=== PATIENT | female | born 1965 | race Caucasian/White ===

== ENCOUNTER 2016-04-17 13:15 | Emergency (ER) | payer MEDICAID ==
[2016-04-17 13:21] VITALS: RESP 16; O2SAT 96
--- NOTE | 2016-04-17 13:54 | EDPHY ---
H & P Time Seen by Provider: 04/17/16 13:35 HPI/ROS: CHIEF COMPLAINT: I am sick HISTORY OF PRESENT ILLNESS: Patient is a 42-year-old female who presents to the emergency department with a cold since . She states that she has developed significant fatigue. She has an ongoing cough that is nonproductive. She has intermittent mild headaches and nausea. No vomiting. No diarrhea. No abdominal pain. The patient has no dysuria or frequency. Patient was concerned because for the past 3 days she has been sleeping extensively. REVIEW OF SYSTEMS: My complete review of systems is negative except as mentioned in the HPI. Past Medical/Surgical History: Includes depression, bipolar to, ADD, fibromyalgia Past surgical history: Includes bilateral foot surgery, pelvic reconstruction, breast implants, abdominal plasty Smoking Status: Never smoked Physical Exam: Vitals noted. 36.4, 113/68, 71, 16, 96% on room air GENERAL: Well-appearing, in no acute distress, alert. HEENT: Eyes normal to inspection, normal pharynx, no signs of dehydration. Normal. NECK: No thyromegaly, no lymphadenopathy, supple. RESPIRATORY: Clear to auscultation bilaterally, no rales, rhonchi or wheezing. Normal. CVS: Regular rate and rhythm, no rubs, murmurs, or gallops. ABDOMEN: Soft, nontender, nondistended, no organomegaly. Benign. BACK: Normal to inspection, no CVA tenderness. SKIN: Normal color, no rash, warm, dry. No pallor. EXTREMITIES: No pedal edema, no calf tenderness, no Homans sign or cords, no joint swelling. NEURO/PSYCH: Alert and oriented, normal mood and affect. Constitutional: Initial Vital Signs Temperature (C) 36.4 C 04/17/16 13:18 Heart Rate 71 04/17/16 13:18 Respiratory Rate 16 04/17/16 13:18 Blood Pressure 113/68 04/17/16 13:18 O2 Sat (%) 96 04/17/16 13:18 O2 Delivery Mode Room Air Allergies/Adverse Reactions: adhesive Allergy (Verified 07/25/14 22:05) DOGS/HORSES Allergy (Mild, Uncoded 07/25/14 22:05) SNEEZE/WATER EYES/ITCHY Home Medications: Medication Instructions Recorded ALPRAZolam [Xanax 0.25 MG (*)] 0.25 mg PO DAILY PRN #0 tab 12/20/14 ARIPiprazole [Abilify 5 mg (*)] 5 mg PO HS #0 tab 12/20/14 Escitalopram Oxalate [Lexapro 10 10 mg PO DAILY #0 tab 12/20/14 MG] Methylphenidate HCl [Ritalin 5mg 5 mg PO TID #45 tab 12/20/14 (*)] OXcarbazepine [Trileptal 300mg (*)] 900 mg PO HS #0 tab 12/20/14 Trifluoperazine HCl [Stelazine 2MG 2 mg PO HS #14 tab 12/20/14 (*)] Hydrocodone/Acetaminophen 1 each PO Q4-6PRN PRN #10 tablet 03/29/15 [Hydrocodon-Acetaminophen 5-325] Ondansetron Odt [Zofran Odt 4 mg 4 mg PO Q4 PRN #20 tab 03/29/15 (RX)] Ranitidine HCl [Zantac] 150 mg PO DAILY #30 tablet 03/29/15 Medical Decision Making ED Course/Re-evaluation: In the emergency department I discussed possible etiologies with the patient. I answered all her questions. A flu swab and chest x-ray were performed. Influenza: Negative Chest x-ray: No acute disease noted. Please refer the dictated report I discussed the results with the patient answered all her questions. She is given warnings prior to leaving. At this time I do not feel she needs antibiotics. I explained this to the patient. She will return with worsening symptoms. Differential Diagnosis: Differential includes but is not limited to viral syndrome, bronchitis, pneumonia, influenza, bacteremia, sepsis, medication interaction - Data Points Laboratory Results: 04/17/16 13:20 Influenza Typ A,B (DFA) Cancelled Influenza A & B (PCR) NEGATIVE FOR FLU (NEGATIVE) Departure - Departure Disposition: Home, Routine, Self-Care Clinical Impression: Viral syndrome, Fever Condition: Good Instructions: Fever in Adults (ED) Additional Instructions: Return with increasing fever, vomiting, shortness of breath or any other concerns. Referrals: Wendi Teixeira MD [Primary Care Provider] - 1-2 days without fail
--- NOTE | 2016-04-17 14:28 | DX ---
Chest, PA and Lateral Upright Views April 17, 2016 at 1:27 p.m. Clinical History: 50-year-old female with fever for three days and flulike symptoms. Comparison Study: Chest, dated July 15, 2006. Findings: There is a mild biphasic thoracolumbar scoliosis with some degenerative features. A lead sh ield was applied to the lower abdomen and pelvis. There are bilateral augmentation mammoplasties pres ent. The cardiac and mediastinal silhouettes are normal in size. There is mild central perihilar bron chial wall thickening, but no focal infiltrate, atelectasis, pleural effusion, peripheral interstitia l edema, or pneumothorax. Impression: Mild perihilar bronchitis, without a focal infiltrate.
[2016-04-17 15:20] VITALS: BP 139/91; PULSE 79; TEMP 98.6
== END 2016-04-17 15:27 | disposition home or self-care (01) ==
DX: B34.9 Viral infection, unspecified (principal)

== ENCOUNTER 2016-06-24 16:27 | Emergency (ER) | payer MEDICAID ==
[2016-06-24 16:43] VITALS: PULSE 77; RESP 20; TEMP 98.1
--- NOTE | 2016-06-24 16:49 | EDPHY ---
H & P Time Seen by Provider: 06/24/16 16:28 HPI/ROS: CHIEF COMPLAINT: Lethargy HISTORY OF PRESENT ILLNESS: Patient is a 42-year-old female with a history of depression, bipolar disorder and fibromyalgia who presents emergency department with multiple complaints. She states that for the past 3-4 days she has had difficulty "same my name." Patient also states "I don't have pigeon toes, but I keep stumbling over my pigeon toes." Patient also states that she has been extremely fatigued and sleepy. She denies change in her medication. No drug or alcohol use. No recent head trauma. She denies headache, neck pain, shortness of breath, cough, abdominal pain, nausea, vomiting or diarrhea. She has had no dysuria or frequency. REVIEW OF SYSTEMS: My complete review of systems is negative except as mentioned in the HPI. Past Medical/Surgical History: Includes depression, bipolar disorder, attention deficit hyperactivity disorder , fibromyalgia, Past surgical history: Includes bilateral foot surgery, pelvic reconstruction, breast implants, abdominal plasty Social history: The patient does not smoke Smoking Status: Never smoked Physical Exam: Vitals noted GENERAL: Well-appearing, in no acute distress, alert. HEENT: Eyes normal to inspection, normal pharynx, no signs of dehydration. NECK: No thyromegaly, no lymphadenopathy, supple. RESPIRATORY: Clear to auscultation bilaterally, no rales, rhonchi or wheezing. CVS: Regular rate and rhythm, no rubs, murmurs, or gallops. ABDOMEN: Soft, nontender, nondistended, no organomegaly. BACK: Normal to inspection, no CVA tenderness. SKIN: Normal color, no rash, warm, dry. No pallor. EXTREMITIES: No pedal edema, no calf tenderness, no Homans sign or cords, no joint swelling. NEURO/PSYCH: Higher functions: Alert and Oriented x3. Normal speech and cognition. Normal mood and affect. Cranial nerves: Normal as tested. Cerebellar: Normal as tested. Good finger to nose, good [id number], normal gait. Peripheral exam: Normal motor exam. Normal sensation. Normal reflexes. Constitutional: Initial Vital Signs Temperature (C) 36.7 C 06/24/16 16:40 Heart Rate 77 06/24/16 16:40 Respiratory Rate 20 06/24/16 16:40 Blood Pressure 110/73 06/24/16 16:40 O2 Sat (%) 97 06/24/16 16:40 O2 Delivery Mode Room Air Allergies/Adverse Reactions: adhesive Allergy (Verified 07/25/14 22:05) DOGS/HORSES Allergy (Mild, Uncoded 07/25/14 22:05) SNEEZE/WATER EYES/ITCHY Home Medications: Medication Instructions Recorded ALPRAZolam [Xanax 0.25 MG (*)] 0.25 mg PO DAILY PRN #0 tab 12/20/14 ARIPiprazole [Abilify 5 mg (*)] 5 mg PO HS #0 tab 12/20/14 Escitalopram Oxalate [Lexapro 10 10 mg PO DAILY #0 tab 12/20/14 MG] Methylphenidate HCl [Ritalin 5mg 5 mg PO TID #45 tab 12/20/14 (*)] OXcarbazepine [Trileptal 300mg (*)] 900 mg PO HS #0 tab 12/20/14 Trifluoperazine HCl [Stelazine 2MG 2 mg PO HS #14 tab 12/20/14 (*)] Hydrocodone/Acetaminophen 1 each PO Q4-6PRN PRN #10 tablet 03/29/15 [Hydrocodon-Acetaminophen 5-325] Ondansetron Odt [Zofran Odt 4 mg 4 mg PO Q4 PRN #20 tab 03/29/15 (RX)] Ranitidine HCl [Zantac] 150 mg PO DAILY #30 tablet 03/29/15 Medical Decision Making ED Course/Re-evaluation: In the emergency department I discussed possible etiologies with the patient. She consented to further workup. Laboratory studies, head CT were ordered. Head CT: No acute disease noted. Please refer the dictated report by Dr. Sid Castrejon. CBC and chemistry were unremarkable. I rechecked the patient. She was doing better on recheck. No focal deficits. No respiratory distress. Lung sounds clear. Abdomen is soft, nontender nondistended. She was given warnings prior to leaving. She will return with worsening symptoms. Differential Diagnosis: My differential includes but is not limited to subarachnoid hemorrhage, subdural hematoma, meningitis, encephalitis, electrolyte abnormality, sugar abnormality, urinary tract infection, occult infection, bacteremia, sepsis, alcohol use, medication reaction, NPH - Data Points Laboratory Results: Laboratory Results 06/24/16 16:35 06/24/16 16:35 06/24/16 06/24/16 06/24/16 17:15 16:35 16:35 WBC RBC Hgb Hct MCV MCH MCHC RDW Plt Count MPV Neut % (Auto) Lymph % (Auto) [place] % (Auto) Eos % (Auto) Baso % (Auto) Nucleat RBC Rel Count Absolute Neuts (auto) Absolute Lymphs (auto) Absolute Monos (auto) Absolute Eos (auto) Absolute Basos (auto) Absolute Nucleated RBC Immature Gran % Immature Gran # Sodium 143 mEq/L mEq/L (134-144) Potassium 3.6 mEq/L mEq/L (3.5-5.2) Chloride 109 mEq/L mEq/L (97-110) Carbon Dioxide 24 mEq/l mEq/l (22-31) Anion Gap 10 mEq/L mEq/L (8-16) BUN 24 mg/dL H mg/dL (7-23) Creatinine 0.8 mg/dL mg/dL (0.6-1.0) Estimated GFR > 60 Glucose 85 mg/dL mg/dL (70-100) Calcium 9.0 mg/dL mg/dL (8.5-10.4) Beta HCG, Qual NEGATIVE Urine Color YELLOW Urine Appearance CLEAR Urine pH 5.0 (5.0-7.5) Ur Specific [place] 1.025 (1.002-1.030) Urine Protein NEGATIVE (NEGATIVE) Urine Ketones NEGATIVE (NEGATIVE) Urine Blood NEGATIVE (NEGATIVE) Urine Nitrate NEGATIVE (NEGATIVE) Urine Bilirubin NEGATIVE (NEGATIVE) Urine Urobilinogen NEGATIVE EU EU (0.2-1.0) Ur Leukocyte Esterase NEGATIVE (NEGATIVE) Ur Culture Indicated? NOT INDICATED (NI) Urine Glucose NEGATIVE (NEGATIVE) Ethyl Alcohol < 10 mg/dL mg/dL (0-10) 06/24/16 16:35 WBC 6.64 10^3/uL 10^3/uL (3.80-9.50) RBC 4.34 10^6/uL 10^6/uL (4.18-5.33) Hgb 13.0 g/dL g/dL (12.6-16.3) Hct 40.5 % % (38.0-47.0) MCV 93.3 fL fL (81.5-99.8) MCH 30.0 pg pg (27.9-34.1) MCHC 32.1 g/dL L g/dL (32.4-36.7) RDW 13.2 % % (11.5-15.2) Plt Count 239 10^3/uL 10^3/uL (150-400) MPV 10.2 fL fL (8.7-11.7) Neut % (Auto) 67.2 % % (39.3-74.2) Lymph % (Auto) 25.2 % % (15.0-45.0) [place] % (Auto) 5.0 % % (4.5-13.0) Eos % (Auto) 1.7 % % (0.6-7.6) Baso % (Auto) 0.6 % % (0.3-1.7) Nucleat RBC Rel Count 0.0 % % (0.0-0.2) Absolute Neuts (auto) 4.47 10^3/uL 10^3/uL (1.70-6.50) Absolute Lymphs (auto) 1.67 10^3/uL 10^3/uL (1.00-3.00) Absolute Monos (auto) 0.33 10^3/uL 10^3/uL (0.30-0.80) Absolute Eos (auto) 0.11 10^3/uL 10^3/uL (0.03-0.40) Absolute Basos (auto) 0.04 10^3/uL 10^3/uL (0.02-0.10) Absolute Nucleated RBC 0.00 10^3/uL 10^3/uL (0-0.01) Immature Gran % 0.3 % % (0.0-1.1) Immature Gran # 0.02 10^3/uL 10^3/uL (0.00-0.10) Sodium Potassium Chloride Carbon Dioxide Anion Gap BUN Creatinine Estimated GFR Glucose Calcium Beta HCG, Qual Urine Color Urine Appearance Urine pH Ur Specific [place] Urine Protein Urine Ketones Urine Blood Urine Nitrate Urine Bilirubin Urine Urobilinogen Ur Leukocyte Esterase Ur Culture Indicated? Urine Glucose Ethyl Alcohol Departure - Departure Disposition: Home, Routine, Self-Care Clinical Impression: Fatigue Qualifiers: Fatigue type: unspecified Qualified Code(s): R53.83 - Other fatigue Condition: Good Instructions: Fatigue (ED) Additional Instructions: Your laboratory studies and head CT were normal. Return with increasing symptoms or other concerns.
[2016-06-24 17:02] LABS: % IMMATURE GRANULYOCYTES 0.3 % (0.0-1.1); ABSOLUTE IMMATURE GRANULOCYTES 0.02 10^3/uL (0.00-0.10); ADD DIFF? NO; ADD MORPH? NO; ADD SCAN? NO; ATYPICAL LYMPHOCYTE FLAG 0 (0-99); FRAGMENT RBC FLAG 0 (0-99); HEMATOCRIT 40.5 % (38.0-47.0); LEFT SHIFT FLG 0 (0-99); LIPEMIA HEMOLYSIS FLAG 80 (0-99); MEAN CELL HEMOGLOBIN CONCENTR. 32.1 g/dL (32.4-36.7); MEAN CELL VOLUME 93.3 fL (81.5-99.8); MEAN PLATELET VOLUME 10.2 fL (8.7-11.7); PLATELET CLUMPS FLAG 0 (0-99); PLATELET COUNT 239 10^3/uL (150-400); RED BLOOD CELL COUNT 4.34 10^6/uL (4.18-5.33); RED CELL DISTRIBUTION WIDTH 13.2 % (11.5-15.2)
[2016-06-24 17:20] LABS: ANION GAP 10 mEq/L (8-16); CARBON DIOXIDE 24 mEq/l (22-31); CHLORIDE 109 mEq/L (97-110); CREATININE 0.8 mg/dL (0.6-1.0); ETHANOL SERUM < 10 mg/dL (0-10); GLOMERULAR FILTRATION RATE > 60; GLUCOSE 85 mg/dL (70-100); POTASSIUM 3.6 mEq/L (3.5-5.2); SODIUM 143 mEq/L (134-144)
[2016-06-24 17:41] LABS: COLOR YELLOW; LEUKOCYTE ESTERASE,URINE NEGATIVE (NEGATIVE); NITRITE,URINE NEGATIVE (NEGATIVE)
[2016-06-24] MEDS ORDERED: LETS SOLN TOPICAL 1 EA SYR TP ONE (17:41)
[2016-06-24 18:59] VITALS: BP 102/74; O2SAT 96
== END 2016-06-24 19:00 | disposition home or self-care (01) ==
LOC: EDUNIT#
DX: R53.83 Other fatigue (principal)
CPT/HCPCS: G0480

== ENCOUNTER 2016-06-25 15:52 | Observation (INO) | payer MEDICAID ==
--- NOTE | 2016-06-25 16:20 | CPEKG ---
Heart Rate: 98 RR Interval: 612 P-R Interval: 136 QRSD Interval: 84 QT Interval: 372 QTC Interval: 476 P Dupo: 62 QRS Dupo: 67 T Wave Dupo: 10 EKG Severity - BORDERLINE ECG - EKG Impression: SINUS RHYTHM EKG Impression: BORDERLINE T ABNORMALITIES, ANTERIOR LEADS Electronically Signed By: Charles Min 25-Jun-2016 23:24:34
--- NOTE | 2016-06-25 16:27 | EDPHY ---
H & P Time Seen by Provider: 06/25/16 16:21 HPI/ROS: Chief complaint. Confused, stumbling, can't swallow HPI. 42-year-old female seen yesterday in the emergency department for similar symptoms with normal workup. Her mother called her today and said her symptoms are continuing. She was advised to return to the emergency department. Patient tells me that 4 days ago her thighs fell week. Since then she has been off balance and stumbling. She went for a walk today and returned to the wrong house. She has had no fever, head injury URI symptoms. She at times feels like she can' t swallow and has spit out water. She has only felt like eating ice cream for the last for 5 days. 3 nights ago the patient initially tells me that she she took 10 Klonopin to help her sleep and then when I asked her further about that she denies that she took extra Klonopin. Patient manages her own medication. She had a normal workup including normal head CT yesterday ROS Constitutional. Generalized weakness and off balance Eyes. no problems with vision ENT. no sore throat, no nasal drainage Cardiovascular. no chest pain Respiratory. no shortness of breath, no cough Abdominal. no abdominal pain, no nausea/vomiting, no diarrhea . no problems urinating MS. no calf pain/swelling, no neck/back pain, no joint pain Skin. no rash Lymph. no swollen glands Neuro. Ataxia, altered mental status and confusion Past Medical/Surgical History: Past medical history, depression, bipolar illness, ADD, pelvic reconstruction, breast implants, fibromyalgia Social History: Single, nonsmoker, denies alcohol Smoking Status: Never smoked Physical Exam: General Appearance: Alert well-developed female slurred speech mild distress vital signs are stable Eyes: Pupils equal and round no pallor or injection. ENT, oropharynx without trauma or injection. Mucous membranes are moist Respiratory: There are no retractions, lungs are clear to auscultation. Cardiovascular: Regular rate and rhythm. Gastrointestinal: Abdomen is soft and nontender, no masses, bowel sounds normal. Neurological: Awake and alert, sensory and motor exams grossly normal. Speech is slurred. Cranial nerves intact. Ataxia with finger to nose with both hands and [id number] is abnormal with both legs. There is no pronator drift however. Skin: Warm and dry, no rashes. Musculoskeletal: Neck is supple nontender. Extremities symmetrical, full range of motion. Psychiatric: Patient is oriented X 3, there is no agitation. Constitutional: Initial Vital Signs Temperature (C) 36.9 C 06/25/16 16:04 Heart Rate 99 06/25/16 16:04 Respiratory Rate 14 06/25/16 16:04 Blood Pressure 122/83 H 06/25/16 16:04 O2 Sat (%) 96 06/25/16 16:04 O2 Delivery Mode Room Air Allergies/Adverse Reactions: adhesive Allergy (Verified 06/25/16 16:03) DOGS/HORSES Allergy (Mild, Uncoded 06/25/16 16:03) SNEEZE/WATER EYES/ITCHY Home Medications: Medication Instructions Recorded ALPRAZolam [Xanax 0.25 MG (*)] 0.25 mg PO DAILY PRN #0 tab 12/20/14 ARIPiprazole [Abilify 5 mg (*)] 5 mg PO HS #0 tab 12/20/14 Escitalopram Oxalate [Lexapro 10 10 mg PO DAILY #0 tab 12/20/14 MG] Methylphenidate HCl [Ritalin 5mg 5 mg PO TID #45 tab 12/20/14 (*)] OXcarbazepine [Trileptal 300mg (*)] 900 mg PO HS #0 tab 12/20/14 Trifluoperazine HCl [Stelazine 2MG 2 mg PO HS #14 tab 12/20/14 (*)] Hydrocodone/Acetaminophen 1 each PO Q4-6PRN PRN #10 tablet 03/29/15 [Hydrocodon-Acetaminophen 5-325] Ondansetron Odt [Zofran Odt 4 mg 4 mg PO Q4 PRN #20 tab 03/29/15 (RX)] Ranitidine HCl [Zantac] 150 mg PO DAILY #30 tablet 03/29/15 Medical Decision Making - Diagnostics EKG Interpretation: EKG interpreted by me shows normal sinus rhythm with normal interval and axis. QRS is normal there is no significant ST elevation or depression. There is no arrhythmia. The rate is 98 Procedures: IV normal saline, monitor Procedure: Lumbar puncture. Indication: Confusion, ataxia After verbal informed consent from patient explaining the risks including infection, bleeding, and neurologic damage, a lumbar puncture was performed after the patient was prepped and draped in the usual fashion. The back was anesthetized with 1% lidocaine. Approximately 4 cc of clear fluid was obtained. Opening pressure was not obtained. There were no complications. The procedure was performed by myself. The spinal fluid was clear ED Course/Re-evaluation: On serial evaluations patient still has some slurred speech and ataxia. Review of her head CT yesterday was normal. Her lab work is normal. Her tox screen is negative. Lumbar puncture is performed as part of altered mental status workup CSF appears normal so far I have discussed treatment plan including need for admission with the patient and her mom. They expressed understanding and agreement I consulted and discussed the case with Dr. Garcia, hospitalist, who sees the patient in the emergency department Differential Diagnosis: I suspect that this is medication ingestion or withdrawal. I have considered intracranial bleeding however she had a normal head CT last night. I have considered meningitis or intracranial infection is etiology as well. - Data Points Laboratory Results: Laboratory Results 06/25/16 16:05 06/25/16 16:05 06/25/16 06/25/16 06/25/16 17:55 16:05 16:05 WBC RBC Hgb Hct MCV MCH MCHC RDW Plt Count MPV Neut % (Auto) Lymph % (Auto) [place] % (Auto) Eos % (Auto) Baso % (Auto) Nucleat RBC Rel Count Absolute Neuts (auto) Absolute Lymphs (auto) Absolute Monos (auto) Absolute Eos (auto) Absolute Basos (auto) Absolute Nucleated RBC Immature Gran % Immature Gran # Sodium Potassium Chloride Carbon Dioxide Anion Gap BUN Creatinine Estimated GFR Glucose Calcium Beta HCG, Qual NEGATIVE CSF Tube Number Pending CSF Appearance Pending CSF Color Pending CSF Supernatant Pending CSF WBC Pending CSF RBC Pending CSF Glucose 55 mg/dL mg/dL (50-75) CSF Total Protein 47 mg/dL mg/dL (12-60) Salicylates Urine Opiates Screen NEGATIVE (NEGATIVE) Acetaminophen Urine Barbiturates NEGATIVE (NEGATIVE) Ur Phencyclidine Scrn NEGATIVE (NEGATIVE) Ur Amphetamine Screen NEGATIVE (NEGATIVE) U Benzodiazepines Scrn NEGATIVE (NEGATIVE) Urine Cocaine Screen NEGATIVE (NEGATIVE) U Marijuana (THC) Screen NEGATIVE (NEGATIVE) Ethyl Alcohol 06/25/16 06/25/16 16:05 16:05 WBC 5.80 10^3/uL 10^3/uL (3.80-9.50) RBC 4.29 10^6/uL 10^6/uL (4.18-5.33) Hgb 12.9 g/dL g/dL (12.6-16.3) Hct 38.9 % % (38.0-47.0) MCV 90.7 fL fL (81.5-99.8) MCH 30.1 pg pg (27.9-34.1) MCHC 33.2 g/dL g/dL (32.4-36.7) RDW 13.3 % % (11.5-15.2) Plt Count 242 10^3/uL 10^3/uL (150-400) MPV 10.0 fL fL (8.7-11.7) Neut % (Auto) 68.0 % % (39.3-74.2) Lymph % (Auto) 23.4 % % (15.0-45.0) [place] % (Auto) 6.2 % % (4.5-13.0) Eos % (Auto) 1.4 % % (0.6-7.6) Baso % (Auto) 0.7 % % (0.3-1.7) Nucleat RBC Rel Count 0.0 % % (0.0-0.2) Absolute Neuts (auto) 3.94 10^3/uL 10^3/uL (1.70-6.50) Absolute Lymphs (auto) 1.36 10^3/uL 10^3/uL (1.00-3.00) Absolute Monos (auto) 0.36 10^3/uL 10^3/uL (0.30-0.80) Absolute Eos (auto) 0.08 10^3/uL 10^3/uL (0.03-0.40) Absolute Basos (auto) 0.04 10^3/uL 10^3/uL (0.02-0.10) Absolute Nucleated RBC 0.00 10^3/uL 10^3/uL (0-0.01) Immature Gran % 0.3 % % (0.0-1.1) Immature Gran # 0.02 10^3/uL 10^3/uL (0.00-0.10) Sodium 141 mEq/L mEq/L (134-144) Potassium 4.1 mEq/L mEq/L (3.5-5.2) Chloride 111 mEq/L H mEq/L (97-110) Carbon Dioxide 18 mEq/l L D mEq/l (22-31) Anion Gap 12 mEq/L mEq/L (8-16) BUN 14 mg/dL mg/dL (7-23) Creatinine 0.7 mg/dL mg/dL (0.6-1.0) Estimated GFR > 60 Glucose 120 mg/dL H mg/dL (70-100) Calcium 9.0 mg/dL mg/dL (8.5-10.4) Beta HCG, Qual CSF Tube Number CSF Appearance CSF Color CSF Supernatant CSF WBC CSF RBC CSF Glucose CSF Total Protein Salicylates < 1.0 mg/dL L mg/dL (2.0-20.0) Urine Opiates Screen Acetaminophen < 10 mcg/mL L mcg/mL (10.0-30.0) Urine Barbiturates Ur Phencyclidine Scrn Ur Amphetamine Screen U Benzodiazepines Scrn Urine Cocaine Screen U Marijuana (THC) Screen Ethyl Alcohol < 10 mg/dL mg/dL (0-10) Microbiology Results: MICROBIOLOGY 06/25/16 17:55 Cerebral Spinal Fluid Gram Stain - Final Departure - Departure Disposition: [facility] Inpatient Acute Clinical Impression: Altered mental status Qualifiers: Altered mental status type: disorientation Qualified Code(s): R41.0 - Disorientation, unspecified Condition: Fair
[2016-06-25 16:50] LABS: % IMMATURE GRANULYOCYTES 0.3 % (0.0-1.1); ABSOLUTE IMMATURE GRANULOCYTES 0.02 10^3/uL (0.00-0.10); ADD DIFF? NO; ADD MORPH? NO; ADD SCAN? NO; ATYPICAL LYMPHOCYTE FLAG 10 (0-99); FRAGMENT RBC FLAG 0 (0-99); HEMATOCRIT 38.9 % (38.0-47.0); HEMOGLOBIN 12.9 g/dL (12.6-16.3); LEFT SHIFT FLG 0 (0-99); LIPEMIA HEMOLYSIS FLAG 80 (0-99); MEAN CELL HEMOGLOBIN 30.1 pg (27.9-34.1); MEAN CELL HEMOGLOBIN CONCENTR. 33.2 g/dL (32.4-36.7); MEAN CELL VOLUME 90.7 fL (81.5-99.8); PLATELET CLUMPS FLAG 0 (0-99); PLATELET COUNT 242 10^3/uL (150-400); RED BLOOD CELL COUNT 4.29 10^6/uL (4.18-5.33); RED CELL DISTRIBUTION WIDTH 13.3 % (11.5-15.2)
[2016-06-25 16:56] LABS: ANION GAP 12 mEq/L (8-16); CARBON DIOXIDE 18 mEq/l (22-31); CHLORIDE 111 mEq/L (97-110); CREATININE 0.7 mg/dL (0.6-1.0); ETHANOL SERUM < 10 mg/dL (0-10); GLOMERULAR FILTRATION RATE > 60; GLUCOSE 120 mg/dL (70-100); POTASSIUM 4.1 mEq/L (3.5-5.2); SALICYLATE < 1.0 mg/dL (2.0-20.0); SODIUM 141 mEq/L (134-144)
[2016-06-25 18:22] LABS: PROTEIN, CSF 47 mg/dL (12-60)
[2016-06-25 19:14] LABS: WBC, CSF 0 /mm3 (0-5)
[2016-06-25 19:33] LABS: WBC, CSF 0 /mm3 (0-5)
[2016-06-25 19:34] LABS: CSF APPEARANCE CLEAR (CLEAR); CSF COLOR COLORLESS (COLORLESS); CSF SUPERNATANT COLORLESS (COLORLESS)
[2016-06-25 19:35] LABS: CSF APPEARANCE CLEAR (CLEAR); CSF COLOR COLORLESS (COLORLESS); CSF SUPERNATANT COLORLESS (COLORLESS)
--- NOTE | 2016-06-25 20:11 | PDGENHP ---
History and Physical - Chief Complaint trouble swallowing - History of Present Illness this is a 50-year-old female with history of bipolar and depression presents to the emergency department today with worsening slurred speech, trouble walking , and a inability to swallow water. She states that she 1st developed some weakness in both of her thighs about 4 days ago. Since the onset she has had worsening weakness in her legs to the point where she is having trouble walking. she also reports slurred speech. She denies word-finding difficulties. Her symptoms seem to improve after she sleeps. She denies any blurred vision. She has not been having any fevers or chills. She denies headache Or neck pain. She was seen in the emergency department yesterday for the same complaints, and was sent home. She returned today due to worsening of her symptoms. her mood is described as depressed, but is stable. She denies any substance use other than [id number] BOOM supplement that she takes for sleep. Per home medication reconciliation she is on benzodiazepine medications that she tells me she has not been taking. Her urine tox screen is negative for benzos. History Information - Allergies/Home Medication List Allergies/Adverse Reactions: adhesive Allergy (Verified 06/25/16 16:03) DOGS/HORSES Allergy (Mild, Uncoded 06/25/16 16:03) SNEEZE/WATER EYES/ITCHY Home Medications: ALPRAZolam [Xanax 0.25 MG (*)] 0.25 mg PO DAILY PRN 06/25/16 [Last Taken Unknown ] Calcium Carbonate [[place] Calcium 500 mg (*)] 500 mg PO BID 06/25/16 [ Last Taken 06/24/16] Herbals/Supplements -Info Only 1 ea PO DAILY 06/25/16 [Last Taken Unknown] METHYLPHENIDATE HCL [Concerta 36 mg] 36 mg PO DAILY 06/25/16 [Last Taken ] Methylphenidate HCl [Ritalin 20mg (*)] 20 mg PO 5XD 06/25/16 [Last Taken ] Montelukast Sodium [Singulair 10 mg (*)] 10 mg PO DAILY 06/25/16 [Last Taken ] Pregabalin [Lyrica 75mg (*)] 75 mg PO BID 06/25/16 [Last Taken 06/24/16] Zinc Gluconate [Zinc Chelated 50mg (*)] 50 mg PO DAILY 06/25/16 [Last Taken ] Zonisamide [Zonegran 100MG (*)] 100 mg PO HS 06/25/16 [Last Taken 06/24/16] clonazePAM [klonoPIN (*)] 1 mg PO BID 06/25/16 [Last Taken 06/24/16] I have personally reviewed and updated: family history, medical history, social history, surgical history Past Medical History: Bipolar 1, depression, ADD, fibromyalgia syndrome - Surgical History Additional surgical history: breast augmentation, pelvic reconstruction - Family History Additional family history: maternal grandfather had Parkinson's disease, paternal grandmother had schizophrenia - Social History Smoking Status: Never smoked Alcohol Use: None Drug Use: None Review of Systems ROS: 10pt was reviewed & negative except for what was stated in HPI & below Constitutional: Reports: no symptoms EENMT: Reports: no symptoms Cardiac: Reports: no symptoms Respiratory: Reports: no symptoms Gastrointestinal: Reports: no symptoms Genitourinary: Reports: frequency Muscolosketal: Reports: no symptoms Skin: Reports: no symptoms Physical Exam Physical Exam: CT of the head done 06/24/2016 was reviewed and negative Temp Pulse Resp BP Pulse Ox 36.9 C 88 16 118/79 97 06/25/16 16:04 06/25/16 18:48 06/25/16 18:48 06/25/16 18:48 06/25/16 18:48 Constitutional: no apparent distress, appears nourished, not in pain Ears, Nose, Mouth, Throat: moist mucous membranes, hearing normal, ears appear normal, no oral mucosal ulcers Cardiovascular: regular rate and rhythym, no murmur, rub, or gallop, No edema Respiratory: no respiratory distress, no rales or rhonchi, clear to auscultation Gastrointestinal: normoactive bowel sounds, soft, non-tender abdomen, no palpable masses Genitourinary: no bladder fullness, no bladder tenderness Skin: warm, normal color, no rashes or abrasions, no fluctuance, no induration, No mottled Musculoskeletal: full muscle strength, no muscle tenderness, normal joint ROM, no joint effusions Neurologic: AAOx3, CN II-XII Intact, other ( no saddle anesthesia ; DTRs are 2+ and symmetric at the patella ; rapid alternating movement tach; brxaup-zf-psac intact ; speech is fluent but slightly slurred), No weakness, No numbness, No facial droop Psychiatric: interacting appropriately, not anxious, not encephalopathic, thought process linear, depressed, No anxious Lymph, Heme, Immunologic: no cervical LAD, no supraclavicular LAD Lab Data & Imaging Review 06/25/16 16:05 06/25/16 16:05 WBC 5.80 10^3/uL (3.80-9.50) 06/25/16 16:05 RBC 4.29 10^6/uL (4.18-5.33) 06/25/16 16:05 Hgb 12.9 g/dL (12.6-16.3) 06/25/16 16:05 Hct 38.9 % (38.0-47.0) 06/25/16 16:05 MCV 90.7 fL (81.5-99.8) 06/25/16 16:05 MCH 30.1 pg (27.9-34.1) 06/25/16 16:05 MCHC 33.2 g/dL (32.4-36.7) 06/25/16 16:05 RDW 13.3 % (11.5-15.2) 06/25/16 16:05 Plt Count 242 10^3/uL (150-400) 06/25/16 16:05 MPV 10.0 fL (8.7-11.7) 06/25/16 16:05 Neut % (Auto) 68.0 % (39.3-74.2) 06/25/16 16:05 Lymph % (Auto) 23.4 % (15.0-45.0) 06/25/16 16:05 [place] % (Auto) 6.2 % (4.5-13.0) 06/25/16 16:05 Eos % (Auto) 1.4 % (0.6-7.6) 06/25/16 16:05 Baso % (Auto) 0.7 % (0.3-1.7) 06/25/16 16:05 Nucleat RBC Rel Count 0.0 % (0.0-0.2) 06/25/16 16:05 Absolute Neuts (auto) 3.94 10^3/uL (1.70-6.50) 06/25/16 16:05 Absolute Lymphs (auto) 1.36 10^3/uL (1.00-3.00) 06/25/16 16:05 Absolute Monos (auto) 0.36 10^3/uL (0.30-0.80) 06/25/16 16:05 Absolute Eos (auto) 0.08 10^3/uL (0.03-0.40) 06/25/16 16:05 Absolute Basos (auto) 0.04 10^3/uL (0.02-0.10) 06/25/16 16:05 Absolute Nucleated RBC 0.00 10^3/uL (0-0.01) 06/25/16 16:05 Immature Gran % 0.3 % (0.0-1.1) 06/25/16 16:05 Immature Gran # 0.02 10^3/uL (0.00-0.10) 06/25/16 16:05 Sodium 141 mEq/L (134-144) 06/25/16 16:05 Potassium 4.1 mEq/L (3.5-5.2) 06/25/16 16:05 Chloride 111 mEq/L (97-110) H 06/25/16 16:05 Carbon Dioxide 18 mEq/l (22-31) L D 06/25/16 16:05 Anion Gap 12 mEq/L (8-16) 06/25/16 16:05 BUN 14 mg/dL (7-23) 06/25/16 16:05 Creatinine 0.7 mg/dL (0.6-1.0) 06/25/16 16:05 Estimated GFR > 60 06/25/16 16:05 Glucose 120 mg/dL (70-100) H 06/25/16 16:05 Calcium 9.0 mg/dL (8.5-10.4) 06/25/16 16:05 Beta HCG, Qual NEGATIVE 06/25/16 16:05 CSF Tube Number 4 06/25/16 18:00 CSF Appearance CLEAR (CLEAR) 06/25/16 18:00 CSF Color COLORLESS (COLORLESS) 06/25/16 18:00 CSF Supernatant COLORLESS (COLORLESS) 06/25/16 18:00 CSF WBC 0 /mm3 (0-5) 06/25/16 18:00 CSF RBC 0 /mm3 (0-0) 06/25/16 18:00 CSF Glucose 55 mg/dL (50-75) 06/25/16 17:55 CSF Total Protein 47 mg/dL (12-60) 06/25/16 17:55 Salicylates < 1.0 mg/dL (2.0-20.0) L 06/25/16 16:05 Urine Opiates Screen NEGATIVE (NEGATIVE) 06/25/16 16:05 Acetaminophen < 10 mcg/mL (10.0-30.0) L 06/25/16 16:05 Urine Barbiturates NEGATIVE (NEGATIVE) 06/25/16 16:05 Ur Phencyclidine Scrn NEGATIVE (NEGATIVE) 06/25/16 16:05 Ur Amphetamine Screen NEGATIVE (NEGATIVE) 06/25/16 16:05 U Benzodiazepines Scrn NEGATIVE (NEGATIVE) 06/25/16 16:05 Urine Cocaine Screen NEGATIVE (NEGATIVE) 06/25/16 16:05 U Marijuana (THC) Screen NEGATIVE (NEGATIVE) 06/25/16 16:05 Ethyl Alcohol < 10 mg/dL (0-10) 06/25/16 16:05 Visualized and Interpreted EKG results: Yes EKG Interpretation: Positive for: normal sinsus rhythm ( 98 beats per minute). Negative for: ST elevation, ST depression Assessment & Plan Assessment: This is a 50-year-old female presenting with # slurred speech/ataxia/ dysphagia of unclear etiology differential diagnosis is broad and includes psychosomatic versus central brain lesion versus myasthenia gravis versus benzodiazepine side effect versus a side effect from BOOM supplementation - I discussed case with Dr. Vera from Neurology who is recommending MRI of the brain as well as myasthenia gravis antibodies. he will see the patient in consultation tomorrow # history of bipolar depression - continue home medications # mild metabolic acidosis and hyperchloremia - will repeat a metabolic panel in the morning
[2016-06-25] MEDS ORDERED: ZONISAMIDE 100 MG CAP PO SCH (21:00)
[2016-06-25] MEDS: PREGABALIN 75 MG CAP PO SCH (21:33)
[2016-06-25] MEDS: clonazePAM 1 MG TAB PO SCH (21:36)
[2016-06-26 07:21] VITALS: RESP 16
[2016-06-26] MEDS ORDERED: Herbals/Supplements -Info Only PO SCH (09:00)
[2016-06-26] MEDS ORDERED: METHYLPHENIDATE HCL 36 MG PO SCH (09:00)
[2016-06-26] MEDS ORDERED: ZINC GLUCONATE 50 MG TAB PO SCH (09:00)
[2016-06-26] MEDS ORDERED: MONTELUKAST SODIUM 10 MG TAB PO SCH (09:00)
[2016-06-26] MEDS: PREGABALIN 75 MG CAP PO SCH (09:29)
[2016-06-26] MEDS: clonazePAM 1 MG TAB PO SCH (09:29)
[2016-06-26 11:35] VITALS: O2SAT 95
[2016-06-26 11:53] LABS: ANION GAP 9 mEq/L (8-16); CARBON DIOXIDE 23 mEq/l (22-31); CHLORIDE 110 mEq/L (97-110); CREATININE 0.8 mg/dL (0.6-1.0); GLOMERULAR FILTRATION RATE > 60; GLUCOSE 119 mg/dL (70-100); POTASSIUM 4.4 mEq/L (3.5-5.2); SODIUM 142 mEq/L (134-144)
[2016-06-26 15:24] VITALS: BP 114/84; PULSE 86; TEMP 98.2
[2016-06-26] MEDS ORDERED: ACETAMINOPHEN 325 MG TAB PO PRN (15:38)
--- NOTE | 2016-06-26 16:39 | PDDCSUM ---
Discharge Summary Discharge Summary: Date of Admission 06/25/2016 Date of Discharge 06/26/2016 Discharge diagnoses: 1. Multiple non-specific neurologic symptoms of unclear etiology, consider psychosomatic vs conversion disorder 2. Bipolar disorder 3. Fibromyalgia Consultants: Dr. Bashir Vera, Neurology Imaging and Procedures: 1. LP showed completely normal CSF 2. MRI normal History: For details please see dictated H&P by Dr. Garcia 06/25/2016. In brief , Ms. Garay is a 50 yo female with a h/o bipolar disorder who presented to ED reported gait instability, speech abnormality, and weakness. Hospital course: Pt underwent LP in the ED, CSF is normal, low suspicion for infectious etiology. MRI was normal. Neurology consult was obtained and there was not thought to be a neurologic etiology of her symptoms. Consideration is given to psychosomatic illness versus conversion disorder. Myasthenia gravis and Acetylcholine receptor Abs are pending. She is advised by our Neurology service to follow up with the [facility] for a second opinion. She should also return to her PCP for referral to a counselor and stress management strategies. Disposition: Pt is discharged home in stable condition. Follow up: 1. PCP 2. [facility] Neurology department for 2nd opinion
--- NOTE | 2016-06-26 22:39 | GCON ---
[f rep st] CONSULTATION NEUROLOGY CONSULTATION DATE OF CONSULTATION: 06/26/2016 REFERRING PHYSICIAN: Nathaniel Garcia DO CHIEF COMPLAINT: Multiple neurologic symptoms. 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 She has a significant past medical history of bipolar disorder, and a family history of schizophrenia, and other psychiatric conditions, perhaps depression. She currently is on clonazepam 1 mg twice daily, Ritalin 20 mg up to 5 times daily, Lyrica 75 mg twice daily, Zonegran 100 mg at bedtime, and apparently [place] as well at home. She states these medications have not changed recently. She does endorse that she has had "severe" stress in her life recently. However , we did not elaborate on the specific nature of the stresses. In the setting of the stress, she has developed multiple symptoms including a sense of Jell-O like weakness in her legs, trouble swallowing, slurred speech that is all intermittent. She has had feelings of confusion, as she went to the wrong home when she was trying to get to her home with her son. She also feels like everything in her life feels like a "movie" in two dimensions. She has had disassociation before, she states, when arguing with her ex- some years ago. However, she states that was more severe, and was a "out-of-body experience." This is more mild in nature, in terms of the movie-like experience of experiencing her own life. She went to the urgent care and to the ER x2 for these symptoms, and was admitted last night. She has had an extensive workup with this admission including MRI brain, LP and labs. Her MRI brain is entirely normal, without any evidence of demyelination or mass lesions or mass/tumors. Her CSF was entirely normal, with 0 white cells, glucose is 55, and protein 47. Gram stain was negative. She has a normal white count. Chemistries were fairly unremarkable. Qualitative hCG was negative. Toxicology was unremarkable. We did send a myasthenia gravis antibody panel, and that is pending. PAST MEDICAL HISTORY: Bipolar disorder. MEDICATIONS: At home, see above. ALLERGIES: Dogs, horses, adhesives. SOCIAL HISTORY: The patient has 4 children. 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 FAMILY HISTORY: Her maternal grandfather had Parkinson's disease. There is schizophrenia in the family, as well. REVIEW OF SYSTEMS: Ten-point review of system was done, and only pertinent to the HPI. PHYSICAL EXAMINATION: VITAL SIGNS: Afebrile at 36.9, pulse 88, respirations 16 , blood pressure 118/79. GENERAL: The patient is no acute distress. Very pleasant woman. HIGHER MENTAL FUNCTIONS: She is awake and alert. She has no aphasia. Cranial nerve exam normal, 2 through 7, 11, and 12. MOTOR: She has normal strength throughout. Her tone is normal. She has no cogwheel rigidity. She has normal and symmetric deep tendon reflexes throughout. Toes are downgoing bilaterally. SENSORY: She has normal light touch in all 4 extremities. COORDINATION: She has normal nbgykg-zroc-pmlzqr bilaterally. GAIT: The patient had astasia-abasia, otherwise a normal exam and negative Romberg. IMPRESSION AND PLAN: 1. Bipolar disorder. 2. Multiple neurologic symptoms. 3. Normal MRI brain. 4. Normal CSF exam 5. Query conversion disorder / acute stress disorder The patient's clinical history and neurologic exam are suggestive of a conversion disorder. She is endorsing significant recent / acute psychosocial stressors, although she did delve into the specific nature of her stress. I did licensed professional counselor the patient and her mother that there was no significant abnormalities on her MRI brain or lumbar puncture. They were relieved and happy to hear this. I do not see any primary neurogenic process, based on her history, neurologic exam or testing at this point. I counseled them as such. I recommend she follow up with her psychiatrist and therapist as an outpatient to address the ongoing stress, as it may be causing physical symptoms. I also suggested she get a second opinion neurologically, speaking. I recommended she see the [facility] Department of neurology for a general neurology consultation, with all of her inpatient records here, including the pending myasthenia gravis (MG) antibody panel. They certainly can call our office in 2 weeks, and have been recommended, as such, to follow up on those MG antibody results. I have no further recommendations. She will discharge later today from the hospital. Thank you for this consultation. BILLING INFORMATION: 70 minutes total floor time today; over 50% in counseling with the patient and her mother, and coordination of care regarding differential diagnoses and plan with this patient. /[id number]/MODL MTDD
== END 2016-06-26 17:02 | disposition home or self-care (01) ==
LOC: INTOOBSV 18:14 → UNDOADMIN 18:14 → F3N 18:38
PROVIDERS: ADMIT Family Medicine; ATTEND Hospitalist
DX: R27.0 Ataxia, unspecified (principal); F31.9 Bipolar disorder, unspecified; R47.81 Slurred speech; M79.7 Fibromyalgia
CPT/HCPCS: 70551; 93005; G0378; 80305; G0480

== ENCOUNTER 2016-09-12 17:26 | Inpatient (IN) | payer MEDICAID ==
[2016-09-12] MEDS ORDERED: ONDANSETRON 4 MG/2 ML VIAL ONE ×3 (17:29→23:01)
[2016-09-12] MEDS ORDERED: ONDANSETRON 4 MG/2 ML VIAL IVP ONE (17:30)
[2016-09-12] MEDS ORDERED: NS 1,000 ML IV ONE ×3 (17:30→18:50)
[2016-09-12] MEDS ORDERED: NALOXONE HCL 0.4 MG/ML INJ IVP ONE (17:31)
--- NOTE | 2016-09-12 17:36 | EDPHY ---
H & P HPI/ROS: HPI CHIEF COMPLAINT: Polysubstance overdose HISTORY OF PRESENT ILLNESS: This patient 50-year-old female presents emergency room by emergent ambulance for overdose. According EMS mom saw the patient around 2:00 p.m. where she was sleepy around 3:00 p.m. she started having vomiting and was incoherent mom became concerned call 911. It is unclear exactly what she ingested a what she took. No witness. Limited history. Upon arrival to the emergency room she is on a non-rebreather she has a nasal trumpet in the right Kumar. She is responsive to verbal stimuli. However she is mumbling. She does have significant past medical history for bipolar disorder she takes multiple medications. Medications include Lyrica, Ritalin, Wellbutrin, Klonopin , lithium, zonasamide. Patient unable to give me any history and cannot tell me what she took she is mumbling. Notified to me that EMS reports that she has a normal blood sugar. No history of narcotic ingestion. Unclear if this is a suicide attempt at this time. Past Medical History: Fibromyalgia, conversion disorder, bipolar disorder, depression Past Surgical History: Pelvic reconstruction Social History: Unknown social history at this time Family History: Unknown ROS REVIEW OF SYSTEMS: Limited due to patient's clinical state and mental state. Exam Constitutional lethargic, responds to verbal stimuli, triage nursing summary reviewed, vital signs reviewed Eyes normal conjunctivae and sclera, EOMI, PERRLA. HENT normal inspection, atraumatic, moist mucus membranes, no epistaxis, neck supple/ no meningismus, no raccoon eyes. Respiratory clear to auscultation bilaterally, normal breath sounds, no respiratory distress, no wheezing. Cardiovascular rate normal, regular rhythm, no murmur, no edema, distal pulses normal. Gastrointestinal soft, non-tender, no rebound, no guarding, normal bowel sounds, no distension, no pulsatile mass. Genitourinary no CVA tenderness. Musculoskeletal no midline vertebral tenderness, full range of motion, no calf swelling, no tenderness of extremities, no meningismus, good pulses, neurovascularly intact. Skin pink, warm, & dry, no rash, skin atraumatic. Neurologic lethargic, pupils 3 mm equal reactive to light, Heme/Lymph/Immune no lymphadenopathy. Differential Diagnosis: Includes but is not limited to in a particular order, polysubstance overdose, benzo overdose, narcotic overdose, suicidal ideation, electrolyte disturbance, dehydration, acute coronary syndrome, aspiration pneumonia Medical Decision Making: Plan for this patient IV establishment full machine egg washer, EKG, check aspirin level, check acetaminophen level, check alcohol level, supportive care at this time. Contact poison Control. Check lithium level. IV hydration, Zofran for nausea. Close monitoring of airway and further decrease neurological state. Re-evaluation: EKG interpretation by me on record in [facility] system. Impression and time of EKG 1742, this is sinus rhythm, rate of 75, no acute ischemic changes appreciated specifically no ST elevation or significant ST depression no prolonged intervals. 181: It is noted that this patient has not Tylenol level 441. This is a toxic level. Unknown time of ingestion. Given how high this acetaminophen level is patient be started on neck protocol. LFTs are noted to not be elevated at this time however due to the toxic level she will need to be started on N-acetylcysteine. Will update poison Control. 181: This patient is placed on M1 hold. 1818: Spoke with Poison controlBrooke. Case #: [id number] watch for sz. Recommend Nac Protocol. 183: I did update this patient's mom at bedside. Plan is for neck protocol ICU admission. Toxic Tylenol level. She is hemodynamically stable this time she does respond to verbal stimuli easily. She is not severely lethargic. I will obtain an ABG. At this time I do not feel that she needs intubation. I do not expect her to need intubation. 1. Acute problem right now is Tylenol overdose toxic Tylenol level. NAC protocol ordered. ED x-ray chest one view no acute cardiopulmonary disease specifically do not appreciate any pneumonia. No evidence of aspiration pneumonia. 184: I spoke with Dr. Beard with the hospital service she agrees to admit this patient to the ICU. Understands reason for admission overdose, M1 hold, suicide attempt, toxic Tylenol level. Neck protocol. EKG interpretation by me on record in [facility] system. Impression this is a repeat EKG time of EKG 1836, sinus rhythm rate of 67 borderline T-wave abnormalities V1 V2 V3. Otherwise no acute ischemia. QT interval noted to be 485. 184: At this time I did admit this patient to ICU I did re-evaluate her she responds easily to verbal stimuli no indication for intubation. ABG pending. Updated her and mom at bedside reason for admission. They understand. No indication for activated trouble as this is a polypharmacy overdose, and time of onset is unclear possibly 2 o'clock. Critical Care: Total Critical Care time 45 minutes. Life threatening Polysubstance overdose. Organs involved: Liver, Cardiac. Reason for Critical Condition: Polysubstance overdose, toxic tylenol overdose, Possible liver injury. Source: Patient, Family, EMS - Medical/Surgical History Hx Asthma: No Hx Chronic Respiratory Disease: No Hx Diabetes: No Hx Cardiac Disease: No Hx Renal Disease: No Hx Cirrhosis: No Hx Alcoholism: No Hx HIV/AIDS: No Hx Splenectomy or Spleen Trauma: No Other PMH: DEPRESSION, BIPOLAR II, ADD PRIOR FOOT SURGERY BILAT PELVIC RECONSTRUCTION, BREAST IMPLANTS, LIPOABDOMINOPLASTY, FIBROMYALGIA, - Social History Smoking Status: Never smoked Constitutional: Initial Vital Signs Temperature (C) 36.5 C 09/12/16 17:30 Heart Rate 92 09/12/16 17:30 Respiratory Rate 14 09/12/16 17:30 Blood Pressure 125/76 H 09/12/16 17:30 O2 Sat (%) 96 09/12/16 17:30 O2 Delivery Mode Nasal Cannula O2 (L/minute) 4 Allergies/Adverse Reactions: adhesive Allergy (Verified 09/12/16 17:30) DOGS/HORSES Allergy (Mild, Uncoded 06/25/16 16:03) SNEEZE/WATER EYES/ITCHY Home Medications: Medication Instructions Recorded Herbals/Supplements -Info Only 1 ea PO DAILY 06/25/16 Montelukast Sodium [Singulair 10 10 mg PO DAILY 06/25/16 mg (*)] Pregabalin [Lyrica 75mg (*)] 75 mg PO BID 06/25/16 Zonisamide [Zonegran 100MG (*)] 200 mg PO HS 06/25/16 clonazePAM [klonoPIN (*)] 1 mg PO BID 06/25/16 [place] Carbonate ER [Eskalith Cr 450 mg PO HS 09/12/16 450 mg (*)] Methylphenidate HCl [Ritalin 20mg 20 mg PO 5XD 09/12/16 (*)] buPROPion XL [Wellbutrin Xl] 150 mg PO DAILY 09/12/16 cycloSPORINE 0.05% [Restasis Opht 1 drop EACHEYE BID 09/12/16 Drops(*)] Medical Decision Making - Data Points Laboratory Results: Laboratory Results 09/12/16 17:31 09/12/16 17:31 Medications Given: Discontinued Medications Sodium Chloride (Ns) 1,000 mls @ 0 mls/hr IV ONCE ONE; Wide Open PRN Reason: Protocol Stop: 09/12/16 17:31 Last Admin: 09/12/16 17:35 Dose: 1,000 mls Acetylcysteine 9,525 mg/ (Dextrose) 200 mls @ 200 mls/hr IV ONCE ONE Stop: 09/12/16 19:29 Last Admin: 09/12/16 19:00 Dose: 200 mls Acetylcysteine 3,175 mg/ (Dextrose) 500 mls @ 125 mls/hr IV ONCE ONE Stop: 09/12/16 23:29 Last Admin: 09/12/16 20:47 Dose: 500 mls Sodium Chloride (Ns) 1,000 mls @ 0 mls/hr IV ONCE ONE PRN Reason: Wide Open Stop: 09/12/16 18:32 Last Admin: 09/12/16 18:38 Dose: 1,000 mls Sodium Chloride (Ns) 1,000 mls @ 0 mls/hr IV ONCE ONE PRN Reason: Wide Open Stop: 09/12/16 18:51 Last Admin: 09/12/16 18:50 Dose: 1,000 mls Naloxone HCl (Narcan) 2 mg IVP EDNOW ONE Stop: 09/12/16 17:32 Last Admin: 09/12/16 17:28 Dose: 2 mg Ondansetron HCl (Zofran) 4 mg IVP EDNOW ONE Stop: 09/12/16 17:31 Last Admin: 09/12/16 17:30 Dose: 4 mg Promethazine HCl (Phenergan) 12.5 mg IV ONCE ONE Stop: 09/12/16 23:31 Last Admin: 09/12/16 23:11 Dose: 12.5 mg Departure - Departure Disposition: [facility] Acute Clinical Impression: Acetaminophen overdose Qualifiers: Encounter type: initial encounter Injury intent: intentional self-harm Qualified Code(s): T39.1X2A - Poisoning by 4-Aminophenol derivatives, intentional self-harm, initial encounter Overdose of drug/medicinal substance Qualifiers: Encounter type: initial encounter Injury intent: intentional self-harm Qualified Code(s): T50.902A - Poisoning by unspecified drugs, medicaments and biological substances, intentional self-harm, initial encounter Condition: Critical
[2016-09-12 17:47] LABS: % IMMATURE GRANULYOCYTES 0.8 % (0.0-1.1); ABSOLUTE IMMATURE GRANULOCYTES 0.12 10^3/uL (0.00-0.10); ADD DIFF? NO; ADD MORPH? NO; ADD SCAN? NO; ATYPICAL LYMPHOCYTE FLAG 0 (0-99); FRAGMENT RBC FLAG 0 (0-99); HEMATOCRIT 41.5 % (38.0-47.0); HEMOGLOBIN 13.1 g/dL (12.6-16.3); LEFT SHIFT FLG 0 (0-99); LIPEMIA HEMOLYSIS FLAG 80 (0-99); MEAN CELL HEMOGLOBIN 28.8 pg (27.9-34.1); MEAN CELL HEMOGLOBIN CONCENTR. 31.6 g/dL (32.4-36.7); MEAN CELL VOLUME 91.2 fL (81.5-99.8); MEAN PLATELET VOLUME 9.7 fL (8.7-11.7); PLATELET CLUMPS FLAG 0 (0-99); PLATELET COUNT 327 10^3/uL (150-400); RED BLOOD CELL COUNT 4.55 10^6/uL (4.18-5.33)
[2016-09-12 17:50] LABS: ALANINE AMINOTRANSFERASE 55 IU/L (9-52); ALBUMIN 4.5 g/dL (3.5-5.0); ALKALINE PHOSPHATASE 81 IU/L (38-126); ANION GAP 14 mEq/L (8-16); ASPARTATE AMINOTRANSFERASE 31 IU/L (14-46); BILIRUBIN,TOTAL 0.4 mg/dL (0.1-1.4); CALCIUM 9.3 mg/dL (8.5-10.4); CARBON DIOXIDE 18 mEq/l (22-31); CHLORIDE 108 mEq/L (97-110); CREATININE 0.7 mg/dL (0.6-1.0); ETHANOL SERUM < 10 mg/dL (0-10); GLOMERULAR FILTRATION RATE > 60; GLUCOSE 107 mg/dL (70-100); INR 0.93 (0.83-1.16); LITHIUM 0.5 mEq/L (0.6-1.2); MAGNESIUM 1.8 mg/dL (1.6-2.3); POTASSIUM 4.2 mEq/L (3.5-5.2); PROTIME(PATIENT) 12.4 SEC (12.0-15.0); SALICYLATE < 1.0 mg/dL (2.0-20.0); SODIUM 140 mEq/L (134-144); TOTAL PROTEIN 6.8 g/dL (6.3-8.2)
[2016-09-12 17:51] LABS: APTT 23.5 SEC (23.0-38.0)
[2016-09-12 18:02] LABS: TROPONIN I < 0.012 ng/mL (0-0.034)
[2016-09-12 18:10] LABS: BILIRUBIN-CONJUGATED 0.3 mg/dL (0.0-0.5); BILIRUBIN-UNCONJUGATED 0.1 mg/dL (0.0-1.1)
[2016-09-12] MEDS ORDERED: ACETYLCYSTEINE IV PROTOCOL 1 EACH MISC SCH (18:15)
[2016-09-12] MEDS ORDERED: ACETYLCYSTEINE IV ONE (18:30)
[2016-09-12] MEDS ORDERED: D5W IV ONE (18:30)
--- NOTE | 2016-09-12 18:40 | CPEKG ---
Heart Rate: 67 RR Interval: 896 P-R Interval: 140 QRSD Interval: 82 QT Interval: 468 QTC Interval: 494 P [place]: 77 QRS [place]: 70 T Wave [place]: 42 EKG Severity - BORDERLINE ECG - EKG Impression: SINUS RHYTHM EKG Impression: BORDERLINE T ABNORMALITIES, ANTERIOR LEADS EKG Impression: BORDERLINE PROLONGED QT INTERVAL Electronically Signed By: Jamil Rodriguez 12-Sep-2016 20:45:49
[2016-09-12 19:07] LABS: BASE EXCESS -9.1 mEq/L (-2.5-2.5); BICARBONATE 16 mEq/L (22-26); MEASURED OXYGEN SATURATION 99 % (92-95); PCO2 33 mmHg (34-38); PO2 181 mmHg (65-75); TCO2 17 mEq/L (23-27)
[2016-09-12] MEDS ORDERED: ACETYLCYSTEINE INJ 3,175 MG in D5W 500 ML IV ONE (19:30)
[2016-09-12] MEDS ORDERED: PROMETHAZINE HCL 25 MG/ML INJ IV ONE (23:30)
[2016-09-12] MEDS ORDERED: ACETYLCYSTEINE INJ 6,350 MG in D5W 1,000 ML IV ONE (23:30)
[2016-09-12] MEDS ORDERED: ONDANSETRON 4 MG/2 ML VIAL IVP PRN ×2 (23:34→23:43)
[2016-09-12] MEDS ORDERED: ONDANSETRON DISINTEGRATING 4 MG TAB PO PRN (23:43)
[2016-09-12] MEDS ORDERED: NS 1,000 ML IV SCH (23:45)
--- NOTE | 2016-09-13 00:30 | GHP ---
[f rep st] HISTORY AND PHYSICAL DATE OF ADMISSION: 09/12/2016 CHIEF COMPLAINT: Overdose. HISTORY OF PRESENT ILLNESS: This is a 50-year-old female with a history of bipolar. She is on mult iple psychiatric medications. Apparently, she had a stressful even regarding her children in the couple days, and today took a large amount of Tylenol. Her mom saw her around 2 o'clock this aft ernoon, and was noticed to be sleepy, then she started vomiting, and became incoherent. She denies taking anything other than Tylenol. She is somnolent, but is responsive to questions. She is denyi ng any pain. She is having vomiting. She does state that she had some stressful events that trigge red her. REVIEW OF SYSTEMS: A 10-point review of systems was obtained and was negative. PAST MEDICAL HISTORY: 1. Bipolar. 2. Fibromyalgia. 3. ADHD. PAST SURGICAL HISTORY: Breast augmentation, probably reconstruction. FAMILY HISTORY: Maternal grandfather with Parkinson's. Paternal grandmother had schizophrenia, and there was also some bipolar in the family. SOCIAL HISTORY: No smoking. 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 She is and has 4 children. PHYSICAL EXAM: VITAL SIGNS: Afebrile. Blood pressure 138/87, heart rate 75, oxygen saturation 95% on room air. GENERAL: The patient is well developed in no apparent distress. HEENT: Nonicteric sclerae. Extraocular movements intact. Moist mucous membranes. NECK: Supple. No thyromegaly. L UNGS: Good effort. Clear to auscultation bilaterally. CARDIOVASCULAR: Regular rate and rhythm. No murmurs or gallops. ABDOMEN: Positive bowel sounds. Soft, nontender, nondistended. No hepatos plenomegaly. EXTREMITIES: No clubbing, cyanosis, or edema. SKIN: Without rash. Warm, dry, intac t. NEUROLOGIC: Alert and oriented x3. Moving all 4 extremities equally. PSYCHIATRIC: Flat affec t. LABORATORIES: White blood cell count elevated at 15. Coags are normal. Chemistry shows slightly e levated ALT at 55. Beta hCG is negative. EKG, personally reviewed and interpreted, some borderline QT interval increase, and some T-wave flat tening. Chest x-ray, personally reviewed and interpreted, normal. Tylenol level is 441. Other toxicology screen is negative. [place] is low at 0.5. ASSESSMENT: This is a 50-year-old female presenting with Tylenol toxicity. PLAN: 1. Patient has been started on the NAC protocol. We will check another liver function test now, al charlene with a Tylenol level, which was coming down, and the liver function tests have bumped. We will continue the NAC protocol. 2. Suicide attempt. Once medically cleared, we will have inpatient Psychiatry see the patient. 3. History of bipolar. Patient will be admitted under full admission status. Case discussed with the ER physician. Old re cords are reviewed and summarized in the HPI. /[id number]/MODL
[2016-09-13 01:36] LABS: ALANINE AMINOTRANSFERASE 165 IU/L (9-52); ALBUMIN 3.3 g/dL (3.5-5.0); ALKALINE PHOSPHATASE 30 IU/L (38-126); ANION GAP 11 mEq/L (8-16); ASPARTATE AMINOTRANSFERASE 188 IU/L (14-46); BILIRUBIN,TOTAL 0.4 mg/dL (0.1-1.4); CALCIUM 7.5 mg/dL (8.5-10.4); CARBON DIOXIDE 16 mEq/l (22-31); CHLORIDE 112 mEq/L (97-110); CREATININE 0.6 mg/dL (0.6-1.0); GLOMERULAR FILTRATION RATE > 60; GLUCOSE 130 mg/dL (70-100); POTASSIUM 3.7 mEq/L (3.5-5.2); SODIUM 139 mEq/L (134-144); TOTAL PROTEIN 5.3 g/dL (6.3-8.2)
[2016-09-13 05:51] LABS: % IMMATURE GRANULYOCYTES 0.4 % (0.0-1.1); ABSOLUTE IMMATURE GRANULOCYTES 0.06 10^3/uL (0.00-0.10); ADD DIFF? NO; ADD MORPH? NO; ADD SCAN? NO; ATYPICAL LYMPHOCYTE FLAG 0 (0-99); FRAGMENT RBC FLAG 0 (0-99); HEMATOCRIT 36.1 % (38.0-47.0); HEMOGLOBIN 11.6 g/dL (12.6-16.3); LEFT SHIFT FLG 0 (0-99); LIPEMIA HEMOLYSIS FLAG 80 (0-99); MEAN CELL HEMOGLOBIN 29.6 pg (27.9-34.1); MEAN CELL HEMOGLOBIN CONCENTR. 32.1 g/dL (32.4-36.7); MEAN CELL VOLUME 92.1 fL (81.5-99.8); MEAN PLATELET VOLUME 9.5 fL (8.7-11.7); PLATELET CLUMPS FLAG 10 (0-99); PLATELET COUNT 228 10^3/uL (150-400); RED BLOOD CELL COUNT 3.92 10^6/uL (4.18-5.33)
[2016-09-13 06:04] LABS: INR 1.11 (0.83-1.16); PROTIME(PATIENT) 14.2 SEC (12.0-15.0)
[2016-09-13 06:22] LABS: ALANINE AMINOTRANSFERASE 189 IU/L (9-52); ALKALINE PHOSPHATASE 44 IU/L (38-126); ANION GAP 10 mEq/L (8-16); ASPARTATE AMINOTRANSFERASE 197 IU/L (14-46); BILIRUBIN,TOTAL 0.4 mg/dL (0.1-1.4); CALCIUM 7.6 mg/dL (8.5-10.4); CARBON DIOXIDE 16 mEq/l (22-31); CHLORIDE 112 mEq/L (97-110); CREATININE 0.7 mg/dL (0.6-1.0); GLOMERULAR FILTRATION RATE > 60; GLUCOSE 112 mg/dL (70-100); POTASSIUM 3.2 mEq/L (3.5-5.2); SODIUM 138 mEq/L (134-144); TOTAL PROTEIN 5.2 g/dL (6.3-8.2)
[2016-09-13] MEDS: CYCLOSPORINE 0.05% 1 EACH BOX EACHEYE SCH ×2 (09:14→21:32)
[2016-09-13] MEDS: clonazePAM 1 MG TAB PO SCH ×2 (09:14→21:07)
[2016-09-13] MEDS: MONTELUKAST SODIUM 10 MG TAB PO SCH (09:14)
[2016-09-13] MEDS: buPROPion XL 150 MG TAB PO SCH (09:14)
--- NOTE | 2016-09-13 12:15 | HOSPPROG ---
Hospitalist Progress Note Assessment/Plan: 50-year-old with bipolar disease fibromyalgia and attention deficit hyperactivity disorder is admitted with Tylenol overdose. She is currently in the N acetylcysteine protocol. She has had elevated LFTs. # Tylenol overdose: Currently on NAC protocol * Continue to monitor LFTs * Likely continue NAC until LFTs are improving # bipolar disease # fibromyalgia Disposition: TLC evaluation once medically cleared Subjective: Complains of a headache, just feels bad all over. Objective: Vital Signs Temp Pulse Resp BP Pulse Ox 36.0 C 71 12 112/69 97 09/13/16 00:00 09/13/16 06:00 09/13/16 06:00 09/13/16 06:00 09/13/16 06:00 Laboratory Results 09/13/16 05:35 09/13/16 05:35 09/12/16 09/13/16 09/14/16 05:59 05:59 05:59 Intake Total 4039 Output Total 1300 Balance 2739 PT 14.2 SEC (12.0-15.0) 09/13/16 06:06 INR 1.11 (0.83-1.16) 09/13/16 06:06 - Physical Exam Constitutional: chronically ill appearing, uncomfortable Eyes: PERRL, EOMI Ears, Nose, Mouth, Throat: moist mucous membranes Cardiovascular: regular rate and rhythym, no murmur, rub, or gallop Respiratory: no respiratory distress, no rales or rhonchi, clear to auscultation Gastrointestinal: normoactive bowel sounds, soft, non-tender abdomen Genitourinary: no bladder fullness Skin: warm, normal color Musculoskeletal: normal joint ROM, no joint effusions Neurologic: AAOx3 Psychiatric: interacting appropriately, flat affect ICD10 Worksheet Patient Problems: Problems Problem Status Onset Bipolar 1 disorder, depressed Acute Altered mental status Acute Acetaminophen overdose Acute Overdose of drug/medicinal substance Acute
[2016-09-13] MEDS: IBUPROFEN 200 MG TAB PO PRN ×2 (12:43→18:22)
[2016-09-13 15:16] LABS: BILIRUBIN,TOTAL 0.4 mg/dL (0.1-1.4); BILIRUBIN-CONJUGATED 0.2 mg/dL (0.0-0.5); BILIRUBIN-UNCONJUGATED 0.2 mg/dL (0.0-1.1); TOTAL PROTEIN 4.8 g/dL (6.3-8.2)
[2016-09-13] MEDS ORDERED: ACETYLCYSTEINE INJ 6,350 MG in D5W 1,000 ML IV ONE (16:00)
--- NOTE | 2016-09-13 16:37 | GCON ---
[f rep st] CONSULTATION CRITICAL CARE CONSULTATION DATE OF CONSULTATION: 09/13/2016 HISTORY OF PRESENT ILLNESS: This patient is a 50-year-old female, with a history of bipolar disorde r, on multiple psychiatric medications, who has had difficulty with severe depression in the past, a nd inpatient psychiatric admissions previously, and apparently had a suicide attempt using Tylenol y . She was found to be somewhat somnolent and had emesis, and was incoherent. She was broug ht to the emergency department where initial LFTs were normal, but her Tylenol level was quite high, and she was started on the NAC protocol. She readily admits to this being a suicide attempt, and h as great concerns about inpatient psychiatric care, and has inquired about a number of medications. REVIEW OF SYSTEMS: Otherwise negative. PAST MEDICAL HISTORY: Includes bipolar disorder, ADHD, and fibromyalgia. PAST SURGICAL HISTORY: Includes breast augmentation. FAMILY HISTORY: Includes Parkinson's disease, schizophrenia, and bipolar disease. SOCIAL HISTORY: She is a nonsmoker, and no significant alcohol or IV drug use that I am aware of. CURRENT MEDICATIONS: Include Wellbutrin, Klonopin, Restasis, lithium, Singulair, Zofran, and acetyl cysteine. PHYSICAL EXAMINATION: VITAL SIGNS: She was afebrile. Heart rate was 71. Blood pressure 112/69, r espirations 12, oxygen saturation 97% on room air. GENERAL APPEARANCE: She was awake and alert, an d clearly despondent, and somewhat tearful, but cooperative with questions and exam. She spoke in f ull sentences without using accessory muscles for breathing. HEENT: Pupils equally round, reactive to light, nonicteric and noninjected. Mucous membranes are moist, without erythema or exudate. NE CK: Supple, without adenopathy or jugular vein distention. LUNGS: Breath sounds were clear to aus cultation bilaterally, without wheezes, rubs, rales. HEART: Regular rate and rhythm, although they were distant. I did not hear any obvious murmurs. ABDOMEN: Diffusely mildly tender, but otherwis e soft without hepatosplenomegaly. EXTREMITIES: Show no clubbing, cyanosis, or edema. NEUROLOGICA L: Exam was grossly nonfocal. LABORATORY DATA: Objective data includes a white count of 14.7, hematocrit 36, platelets of 228. B asic metabolic panel was mostly unremarkable. CO2 was 16. The creatinine was normal. LFTs peaked, with an AST of 197, ALT of 189, down to 94 and 147, respectively. Tylenol level was initially 441, is down to undetectable levels at this time. ASSESSMENT AND PLAN: 1. Tylenol overdose associated with high levels and LFT abnormalities. I would continue her on the NAC protocol for at least 20-24 hours, though she does seem to be responding quite well, and I thin k is unlikely to develop severe hepatotoxicity from this. Once that is completed, she will be medic ally clear, and can proceed with psychiatric evaluation. 2. A suicide attempt. She is currently on an M1 hold, and I will defer to Psychiatry as to the olvin ropriateness of ongoing management. 3. Attention deficit hyperactivity disorder. She has requested Ritalin at 20 mg 5 times daily. I did start it today at 20 mg twice a day, and would defer to Psychiatry if additional dosing is requi red. Otherwise, she appears to be fairly stable. /[id number]/MODL
[2016-09-13] MEDS: FLUTICASONE NASAL 120 SPRAYS/16 GM MDI EACHNARE SCH (18:23)
[2016-09-13] MEDS: PREGABALIN 75 MG CAP PO SCH (21:07)
[2016-09-13] MEDS: LITHIUM CARBONATE ER 450 MG TAB PO SCH (21:07)
[2016-09-13] MEDS: ZONISAMIDE 100 MG CAP PO SCH (21:08)
[2016-09-13] MEDS: SODIUM CL NASAL 45 ML BTL EACHNARE PRN (21:09)
[2016-09-13] MEDS: PROMETHAZINE HCL 25 MG/ML INJ IVP PRN (21:32)
[2016-09-14 04:55] LABS: HEMATOCRIT 35.8 % (38.0-47.0); HEMOGLOBIN 11.7 g/dL (12.6-16.3); MEAN CELL HEMOGLOBIN 29.4 pg (27.9-34.1); MEAN CELL HEMOGLOBIN CONCENTR. 32.7 g/dL (32.4-36.7); MEAN CELL VOLUME 89.9 fL (81.5-99.8); RED BLOOD CELL COUNT 3.98 10^6/uL (4.18-5.33); RED CELL DISTRIBUTION WIDTH 13.1 % (11.5-15.2)
[2016-09-14] MEDS: IBUPROFEN 200 MG TAB PO PRN ×3 (05:03→21:41)
[2016-09-14 05:23] LABS: ANION GAP 5 mEq/L (8-16); CALCIUM 8.5 mg/dL (8.5-10.4); CARBON DIOXIDE 18 mEq/l (22-31); CHLORIDE 116 mEq/L (97-110); CREATININE 0.6 mg/dL (0.6-1.0); GLOMERULAR FILTRATION RATE > 60; GLUCOSE 91 mg/dL (70-100); POTASSIUM 3.5 mEq/L (3.5-5.2); SODIUM 139 mEq/L (134-144)
[2016-09-14] MEDS: clonazePAM 1 MG TAB PO SCH ×2 (09:16→19:39)
[2016-09-14] MEDS: MONTELUKAST SODIUM 10 MG TAB PO SCH (09:17)
[2016-09-14] MEDS: CYCLOSPORINE 0.05% 1 EACH BOX EACHEYE SCH ×2 (09:17→19:40)
[2016-09-14] MEDS: PREGABALIN 75 MG CAP PO SCH ×2 (09:17→19:39)
[2016-09-14] MEDS: buPROPion XL 150 MG TAB PO SCH (09:17)
[2016-09-14] MEDS: FLUTICASONE NASAL 120 SPRAYS/16 GM MDI EACHNARE SCH (09:17)
[2016-09-14 09:35] LABS: ALBUMIN 3.1 g/dL (3.5-5.0); BILIRUBIN,TOTAL 0.3 mg/dL (0.1-1.4); BILIRUBIN-CONJUGATED 0.2 mg/dL (0.0-0.5); BILIRUBIN-UNCONJUGATED 0.1 mg/dL (0.0-1.1); TOTAL PROTEIN 5.1 g/dL (6.3-8.2)
--- NOTE | 2016-09-14 12:25 | PDINTPN ---
Marketing Performance Analyst Progress Note Assessment/Plan: Assessment/plan: 50 F with history of bipolar d/o, ADHD admitted with suicide attempt via tylenol ingestion. Initial level 441 and patient somnolent, so started NAC protocol. Although initial LFTs normal, transaminases tanvir to just below 200 and have fallen to nearly normal. She has expressed significant concerns about inpatient psychiatric treatment, and also reported her daily Ritalin dose at 20 mg 5x daily. * Tylenol OD- completed NAC protocol with appropriate fall in LFTs. Low to no risk risk of hepatic failure and medically cleared for psych * ADHD- Ritalin started at 20 mg BID, but await behavioral health to up-titrate to the high dose she reports. Objective: Vital Signs Temp Pulse Resp BP Pulse Ox 36.6 C 72 15 124/81 H 96 09/14/16 08:00 09/14/16 08:00 09/14/16 08:00 09/14/16 08:00 09/14/16 08:00 Laboratory Results 09/14/16 04:45 09/14/16 04:45 09/13/16 09/14/16 09/15/16 05:59 05:59 05:59 Intake Total 4039 2948 Output Total 1300 2350 Balance 2739 598 PT 14.2 SEC (12.0-15.0) 09/13/16 06:06 INR 1.11 (0.83-1.16) 09/13/16 06:06 Physical Exam - Physical Exam General Appearance: WD/WN, alert, no apparent distress EENT: PERRL/EOMI Neck: supple Respiratory: lungs clear, normal breath sounds, No respiratory distress Cardiac/Chest: regular rate, rhythm, No edema Abdomen: non-tender, soft, No distended Skin: normal color, warm/dry Lymphatic: no adenopathy Extremities: normal range of motion, No pedal edema Neuro/Psych: alert, oriented x 3 ICD10 Worksheet Patient Problems: Problems Problem Status Onset Acetaminophen overdose Acute Overdose of drug/medicinal substance Acute Altered mental status Acute Bipolar 1 disorder, depressed Acute
[2016-09-14] MEDS: PROMETHAZINE HCL 25 MG/ML INJ IVP PRN ×2 (13:13→19:39)
--- NOTE | 2016-09-14 16:04 | HOSPPROG ---
Hospitalist Progress Note Assessment/Plan: 50-year-old with bipolar disease fibromyalgia and attention deficit hyperactivity disorder is admitted with Tylenol overdose and suicide attempt. She has completed the N acetylcysteine protocol and LFT's have normalized. # Tylenol overdose: completed NAC protocol * No further interventions # Suicide attempt. On a mental hold. Medically cleared for Behavioral health evaluation # bipolar disease # ADHD: on Ritalin. Further adjustment of meds per Behavioral team. # fibromyalgia Disposition: TLC evaluation Subjective: She has concerns about inpatient psych. No CP or SOB Objective: Vital Signs Temp Pulse Resp BP Pulse Ox 36.6 C 72 15 124/81 H 96 09/14/16 08:00 09/14/16 08:00 09/14/16 08:00 09/14/16 08:00 09/14/16 08:00 Laboratory Results 09/14/16 04:45 09/14/16 04:45 09/13/16 09/14/16 09/15/16 05:59 05:59 05:59 Intake Total 4039 2948 Output Total 1300 2350 Balance 2739 598 PT 14.2 SEC (12.0-15.0) 09/13/16 06:06 INR 1.11 (0.83-1.16) 09/13/16 06:06 - Physical Exam Constitutional: no apparent distress Eyes: PERRL, EOMI Ears, Nose, Mouth, Throat: moist mucous membranes, hearing normal Cardiovascular: No JVD, No edema Respiratory: no respiratory distress, other (normal work of breathing) Gastrointestinal: No tenderness, No ascites Skin: normal color, No mottled Neurologic: AAOx3 Psychiatric: interacting appropriately ICD10 Worksheet Patient Problems: Problems Problem Status Onset Acetaminophen overdose Acute Overdose of drug/medicinal substance Acute Altered mental status Acute Bipolar 1 disorder, depressed Acute
[2016-09-14] MEDS: LITHIUM CARBONATE ER 450 MG TAB PO SCH (19:39)
[2016-09-14] MEDS: ZONISAMIDE 100 MG CAP PO SCH (19:40)
[2016-09-14] MEDS: SODIUM CL NASAL 45 ML BTL EACHNARE PRN (20:09)
[2016-09-15 00:03] VITALS: O2SAT 98
[2016-09-15] MEDS: IBUPROFEN 200 MG TAB PO PRN (03:29)
[2016-09-15] MEDS: PROMETHAZINE HCL 25 MG/ML INJ IVP PRN (03:29)
[2016-09-15 04:05] LABS: ALANINE AMINOTRANSFERASE 96 IU/L (9-52); ALBUMIN 3.1 g/dL (3.5-5.0); ALKALINE PHOSPHATASE 58 IU/L (38-126); ANION GAP 7 mEq/L (8-16); ASPARTATE AMINOTRANSFERASE 31 IU/L (14-46); BILIRUBIN,TOTAL 0.1 mg/dL (0.1-1.4); BILIRUBIN-UNCONJUGATED 0.1 mg/dL (0.0-1.1); CALCIUM 8.8 mg/dL (8.5-10.4); CARBON DIOXIDE 19 mEq/l (22-31); CHLORIDE 114 mEq/L (97-110); CREATININE 0.7 mg/dL (0.6-1.0); GLOMERULAR FILTRATION RATE > 60; GLUCOSE 91 mg/dL (70-100); POTASSIUM 3.6 mEq/L (3.5-5.2); SODIUM 140 mEq/L (134-144); TOTAL PROTEIN 5.3 g/dL (6.3-8.2)
[2016-09-15] MEDS: MONTELUKAST SODIUM 10 MG TAB PO SCH (08:34)
[2016-09-15] MEDS: PREGABALIN 75 MG CAP PO SCH (08:34)
[2016-09-15] MEDS: buPROPion XL 150 MG TAB PO SCH (08:35)
[2016-09-15] MEDS: clonazePAM 1 MG TAB PO SCH (08:35)
[2016-09-15] MEDS: FLUTICASONE NASAL 120 SPRAYS/16 GM MDI EACHNARE SCH (08:58)
[2016-09-15] MEDS: CYCLOSPORINE 0.05% 1 EACH BOX EACHEYE SCH (08:58)
--- NOTE | 2016-09-15 12:51 | PDDCSUM ---
Discharge Summary Discharge Summary: 50-year-old with bipolar disease fibromyalgia and attention deficit hyperactivity disorder is admitted with Tylenol overdose and suicide attempt. She has completed the N acetylcysteine protocol and LFT's have normalized. Behavioral health saw the patient earlier today and they are looking into placement possibly today. From a medical and non psychiatric perspective, she has been medically cleared since yesterday. The patient seems very frustrated today with this process. I have explained to her today that she has completed the N Acetylcysteine Tylenol overdose protocol and her liver enzymes have normalized. DDx: # Tylenol overdose: completed NAC protocol * No further interventions # Suicide attempt. On a mental hold. Medically cleared for Behavioral valentin and Behavioral health placement # bipolar disease # ADHD: on Ritalin. Further adjustment of meds per Behavioral team. # fibromyalgia Disposition: awaiting placement likely today PE: VSS NAD AAOx3 NO ACTIVE SUICIDAL IDEATION RRR CTAB S/NT/ND NO LE EDEMA DISCHARGE MEDS: SEE MED REC. NO CHANGES TO HER HOME MEDS WERE MADE
[2016-09-15 12:55] VITALS: BP 107/73; PULSE 79; RESP 18; TEMP 97.8
[2016-09-15] MEDS ORDERED: CETIRIZINE 10 MG TAB PO SCH (13:45)
[2016-09-15] MEDS: LORazepam 1 MG TAB PO PRN ×2 (13:59→17:40)
--- NOTE | 2016-09-15 16:55 | PDIAF ---
- Diagnosis Diagnosis: tylenol overdose, suicide attempt. Pt is d/c to [facility] Code Status: Full Code - Medication Management Discharge Medications: Medications to Continue on Transfer Herbals/Supplements -Info Only 1 ea PO DAILY 06/25/16 [Last Taken Unknown] Montelukast Sodium [Singulair 10 mg (*)] 10 mg PO DAILY 06/25/16 [Last Taken ] Pregabalin [Lyrica 75mg (*)] 75 mg PO BID 06/25/16 [Last Taken 06/24/16] Zonisamide [Zonegran 100MG (*)] 200 mg PO HS 06/25/16 [Last Taken 06/24/16] clonazePAM [klonoPIN (*)] 1 mg PO BID 06/25/16 [Last Taken 06/24/16] [place] Carbonate ER [Eskalith Cr 450 mg (*)] 450 mg PO HS 09/12/16 [Last Taken Unknown] Methylphenidate HCl [Ritalin 20mg (*)] 20 mg PO 5XD 09/12/16 [Last Taken Unknown ] buPROPion XL [Wellbutrin 150mg XL] 150 mg PO DAILY 09/12/16 [Last Taken Unknown] cycloSPORINE 0.05% [Restasis Opht Drops(*)] 1 drop EACHEYE BID 09/12/16 [Last Taken Unknown] Discharge Medications: Refer to the Discharge Home Medication list for PRN reason. - Orders Diet Recommendation: no restrictions on diet Diet Texture: Regular Texture Diet - Follow Up Care Current Providers and Referrals: Patient,NotPresent [Unknown] - As per Instructions
== END 2016-09-15 19:04 | DRG 918 ==
LOC: EDUNIT# → EEVIPCON 18:38 → F2N 19:58
PROVIDERS: ADMIT Internal Medicine; ATTEND Family Medicine
DX: T39.1X2A Poisoning by 4-Aminophenol derivatives, intentional self-harm, initial encounter (principal); F31.9 Bipolar disorder, unspecified; M79.7 Fibromyalgia; F90.9 Attention-deficit hyperactivity disorder, unspecified type
CPT/HCPCS: 80305; G0480; J0132; J2405; J2550

== ENCOUNTER 2016-12-10 10:42 | Emergency (ER) | payer MEDICAID ==
[2016-12-10] MEDS ORDERED: NS 1,000 ML IV ONE (11:23)
[2016-12-10] MEDS ORDERED: DEXAMETHASONE 10 MG/ML VIAL IVP ONE (11:23)
--- NOTE | 2016-12-10 11:25 | EDPHY ---
H & P Smoking Status: Never smoked Time Seen by Provider: 12/10/16 11:02 HPI/ROS: CHIEF COMPLAINT: Myalgias, right ear pain HISTORY OF PRESENT ILLNESS: 51-year-old female presents to the emergency department by private vehicle with her mother complaining of diffuse myalgias and right ear pain. She started feeling sick a few days ago and initially with a sore throat which is now resolved. She has an occasional cough. She denies chest pain or difficulty breathing. Denies abdominal pain. No vomiting or diarrhea. No recent travel. Her son recently tested positive for strep pharyngitis. She saw her primary care provider 2 days ago and had negative strep culture. She went back yesterday because of her ongoing symptoms and she was given a prescription for Omnicef. She has taken 2 doses of this medication so far. She still continues to complain of right ear pain. Denies hearing loss or drainage from her right ear. No symptoms in the left ear. Her sore throat has resolved. She denies dysphagia. She feels diffuse achiness all over. She feels subjective fevers and chills. REVIEW OF SYSTEMS: Constitutional: subjective fevers, chills Eyes: No double or blurry vision. ENT: No sore throat. Right ear pain as above. Respiratory: No cough, no shortness of breath. Cardiac: No chest pain. Gastrointestinal: No abdominal pain, vomiting or diarrhea. Genitourinary: No dysuria. Musculoskeletal: Diffuse neck and back pain Skin: No rashes. Neurological: headache. (Lindsay Joyner) Past Medical/Surgical History: Bipolar, depression, ADD, fibromyalgia (Lindsay Joyner) Social History: Single and lives in [place] (Lindsay Joyner) Physical Exam: General Appearance: Alert, no distress. Afebrile temperature 36.7degrees. Eyes: Pupils equal and round. Extraocular motions are all intact. ENT: Mouth: Mucous membranes moist. Right ear reveals erythema with bulging and fluid behind the tympanic membrane. No evidence of perforation. Left ear is clear. Respiratory: No wheezing, rhonchi, or rales, lungs are clear to auscultation. Cardiovascular: Regular rate and rhythm. Gastrointestinal: Abdomen is soft and nontender, no masses, no rebound or guarding, bowel sounds normal. Neurological: Alert and oriented x 3, cranial nerves II through XII grossly intact Skin: Warm and dry, no rashes. Musculoskeletal: Nontender to palpate along the cervical, thoracic or lumbar spine. Neck is supple. Extremities: Full range of motion and no peripheral edema. Psychiatric: Patient is oriented X 3, there is no agitation. (Lindsay Joyner) Constitutional: Initial Vital Signs Temperature (C) 36.9 C 12/10/16 10:51 Heart Rate 81 12/10/16 10:51 Respiratory Rate 16 12/10/16 10:51 Blood Pressure 98/72 L 12/10/16 10:51 O2 Sat (%) 98 12/10/16 10:51 O2 Delivery Mode Room Air Allergies/Adverse Reactions: adhesive Allergy (Verified 09/12/16 17:30) DOGS/HORSES Allergy (Mild, Uncoded 06/25/16 16:03) SNEEZE/WATER EYES/ITCHY Home Medications: Medication Instructions Recorded Herbals/Supplements -Info Only 1 ea PO DAILY 06/25/16 Montelukast Sodium [Singulair 10 10 mg PO DAILY 06/25/16 mg (*)] Pregabalin [Lyrica 75mg (*)] 75 mg PO BID 06/25/16 Zonisamide [Zonegran 100MG (*)] 200 mg PO HS 06/25/16 clonazePAM [klonoPIN (*)] 1 mg PO BID 06/25/16 [place] Carbonate ER [Eskalith Cr 450 mg PO HS 09/12/16 450 mg (*)] Methylphenidate HCl [Ritalin 20mg 20 mg PO 5XD 09/12/16 (*)] buPROPion XL [Wellbutrin 150mg XL] 150 mg PO DAILY 09/12/16 cycloSPORINE 0.05% [Restasis Opht 1 drop EACHEYE BID 09/12/16 Drops(*)] Medical Decision Making ED Course/Re-evaluation: 51-year-old female presents to the emergency department very tearful. She has history of depression and bipolar scheduled for ECT in a few days. She is extremely anxious and nervous about this. She complains of severe right ear pain. Clinically she has a right otitis media. She has already been taking her Omnicef as prescribed. I encouraged her to continue taking this medication. The patient was here for several hours. She received IV Ativan, Decadron, IV Toradol and Zofran. She was feeling much better. She declined mental health evaluation. A diplomatic courier, Ryan, came to talk with the patient and her mother. He is also going to meet her on Monday when she is scheduled for ECT. She was very happy with this plan. She is comfortable being discharged home. (Lindsay Joyner) I did not see this patient while she was in the emergency department. However her care was discussed with the PA while the patient was in the department. I agree with treatment plan and management (Charles Min) Differential Diagnosis: Depression including functional and major depression, situational depression, medication side effect, drugs and alcohol abuse. Diffuse pain including but not limited to fibromyalgia, otitis media, strep pharyngitis, mononucleosis, viral syndrome (Lindsay Joyner) - Data Points Laboratory Results: Laboratory Results 12/10/16 11:30 12/10/16 11:30 Medications Given: Discontinued Medications Dexamethasone (Decadron Injection) 10 mg IVP EDNOW ONE Stop: 12/10/16 11:24 Last Admin: 12/10/16 11:37 Dose: 10 mg Sodium Chloride (Ns) 1,000 mls @ 0 mls/hr IV EDNOW ONE; Wide Open PRN Reason: Protocol Stop: 12/10/16 11:24 Last Admin: 12/10/16 11:36 Dose: 1,000 mls Ketorolac Tromethamine (Toradol) 15 mg IVP EDNOW ONE Stop: 12/10/16 12:19 Last Admin: 12/10/16 12:37 Dose: 15 mg Ketorolac Tromethamine (Toradol) 15 mg IVP EDNOW ONE Stop: 12/10/16 15:50 Last Admin: 12/10/16 16:31 Dose: 15 mg Lorazepam (Ativan Injection) 1 mg IVP EDNOW ONE Stop: 12/10/16 11:52 Last Admin: 12/10/16 11:56 Dose: 1 mg Ondansetron HCl (Zofran) 4 mg IVP EDNOW ONE Stop: 12/10/16 14:08 Last Admin: 12/10/16 14:11 Dose: 4 mg Departure - Departure Disposition: Home, Routine, Self-Care Clinical Impression: Right otitis media with effusion Condition: Good Instructions: Otitis Media (ED) Additional Instructions: Continue Omnicef as prescribed. Return to the emergency department if you develop any change in symptoms or if you feel worse in any way. Referrals: Claudette Mcduffie MD [Medical Doctor] - 2-3 days, call for appt. ([facility])
[2016-12-10 11:44] LABS: % IMMATURE GRANULYOCYTES 0.3 % (0.0-1.1); ABSOLUTE IMMATURE GRANULOCYTES 0.03 10^3/uL (0.00-0.10); ADD DIFF? NO; ADD MORPH? NO; ADD SCAN? NO; ATYPICAL LYMPHOCYTE FLAG 0 (0-99); FRAGMENT RBC FLAG 0 (0-99); HEMATOCRIT 41.8 % (38.0-47.0); HEMOGLOBIN 13.3 g/dL (12.6-16.3); LEFT SHIFT FLG 0 (0-99); LIPEMIA HEMOLYSIS FLAG 80 (0-99); MEAN CELL HEMOGLOBIN CONCENTR. 31.8 g/dL (32.4-36.7); MEAN PLATELET VOLUME 9.9 fL (8.7-11.7); PLATELET CLUMPS FLAG 20 (0-99); PLATELET COUNT 270 10^3/uL (150-400); RED BLOOD CELL COUNT 4.75 10^6/uL (4.18-5.33)
[2016-12-10] MEDS ORDERED: LORazepam 2 MG/ML INJ IVP ONE (11:51)
[2016-12-10 12:10] LABS: ANION GAP 11 mEq/L (8-16); CALCIUM 9.2 mg/dL (8.5-10.4); CARBON DIOXIDE 22 mEq/l (22-31); CHLORIDE 107 mEq/L (97-110); CREATININE 0.7 mg/dL (0.6-1.0); GLOMERULAR FILTRATION RATE > 60; GLUCOSE 93 mg/dL (70-100); POTASSIUM 4.4 mEq/L (3.5-5.2); SODIUM 140 mEq/L (134-144)
[2016-12-10] MEDS ORDERED: KETOROLAC 30 MG/1 ML SDV IVP ONE ×2 (12:18→15:49)
[2016-12-10] MEDS ORDERED: ONDANSETRON 4 MG/2 ML VIAL IVP ONE (14:07)
[2016-12-10 16:37] VITALS: BP 116/54; PULSE 70; RESP 18; TEMP 97.9; O2SAT 97
== END 2016-12-10 16:37 | disposition home or self-care (01) ==
DX: H65.91 Unspecified nonsuppurative otitis media, right ear (principal); E86.9 Volume depletion, unspecified
CPT/HCPCS: 96374; J1100; J1885; J2060; J2405

== ENCOUNTER 2016-12-20 11:24 | Emergency (ER) | payer MEDICAID ==
[2016-12-20 11:31] VITALS: O2SAT 96
--- NOTE | 2016-12-20 11:31 | EDPHY ---
Mental Health General Previous Psychiatric History: previous suicide attempt, bipolar Smoking Status: Never smoked Time Patient Placed on M1 Hold: 09:10 Time Medically Cleared for Psychiatric Evaluation: 13:00 Time of Transfer of Care: 17:00 To :: Gabrielle Course: patient remained stable over course of my shift Narrative: CHIEF COMPLAINT: M1 hold HISTORY OF PRESENT ILLNESS: 51-year-old female presents emergency department by police on an M1 hold after her mother called 911 reporting her daughter has been threatening suicide this morning. Mother reports she has not been taking her bipolar medications, the patient states that does not work. Upon police arrival patient is unstable and crying talking on the phone with her doctor. Patient has a therapist with [facility] and sees as her psychiatrist. Pt denies SI to police though reports severe depression since she was a teenager. Pt denies homicidal ideations, auditory and visual hallucinations. She denies drug or alcohol use. REVIEW OF SYSTEMS: A comprehensive 10 point review of systems is otherwise negative aside from elements mentioned in the history of present illness. Physical Exam Gen: Alert and Oriented, flat affect HEENT: PERRL, moist mucous membranes NECK: no meningismus CV: regular rate and regular rhythm PULM: CTAB, no wheezes ABDOMEN: soft, non tender to palpation, BS present BACK: No CVA tenderness NEURO: Neurologically grossly intact EXTREMITIES: normal appearing SKIN: no rash or break in skin on exposed skin PSYCH:flat affect, denies suicidal ideation, homicidal ideation, auditory and visual hallucinations. (Elma Rodriguez) Medical Decision Makin: Patient has been evaluated by mental health. Plan for admission. Notified by nursing staff this patient is post be on amoxicillin for an ear infection. Flonase. These medications both been ordered. 0500: No acute events overnight. Patient resting. Patient signed over at 7:00 a.m. shift change to Dr. Jacqueline Newton. Amoxicillin scheduled. (Jamil Rodriguez) 1700-Pt awaiting mental health evaluation. EPS to evaluate at any time. Report passed on to Dr. Anthony at the end of my shift pending eval. (Elma Rodriguez) 7:00 a.m.-I assumed care of this patient at shift change. She has a history of bipolar disorder and attention deficit hyperactivity disorder and is suicidal. She is on an M1 hold. She has been agitated while in the emergency department and has required multiple doses of oral Ativan to control agitation. She also received 1 dose of Zyprexa. Mental health evaluation is complete and they are looking for inpt disposition. In review of her past medical record, she was admitted in September 2016 for a Tylenol overdose. I will add aspirin and Tylenol levels to her laboratory tests, although she denies intentional overdose. 1:00 p.m.. This patient has been accepted to the [facility] in [place]. EMTALA form was completed. 2:30pm: after talking with the patient, [facility] declines taking her. looking for another placement. (Jacqueline Newton) 1500 care assumed by me from Dr. Newton pending placement. 1829 the patient has been accepted at [facility] by Dr. Zhu. I have completed the EMTALA. (Mauro Ribeiro) - Objective Vital Signs: Initial Vital Signs Temperature (C) 36.9 C 12/20/16 11:28 Heart Rate 72 12/20/16 11:28 Respiratory Rate 18 12/20/16 11:28 Blood Pressure 131/85 H 12/20/16 11:28 O2 Sat (%) 96 12/20/16 11:28 O2 Delivery Mode Room Air Allergies/Adverse Reactions: adhesive Allergy (Verified 09/12/16 17:30) DOGS/HORSES Allergy (Mild, Uncoded 06/25/16 16:03) SNEEZE/WATER EYES/ITCHY Home Medications: Medication Instructions Recorded Montelukast Sodium [Singulair 10 10 mg PO DAILY 06/25/16 mg (*)] Pregabalin [Lyrica 75mg (*)] 75 mg PO BID 06/25/16 Methylphenidate HCl [Ritalin 20mg 40 mg PO TID 09/12/16 (*)] cycloSPORINE 0.05% [Restasis Opht 1 drop EACHEYE BID 09/12/16 Drops(*)] Zonisamide [Zonegran 100MG (*)] 200 mg PO 12/20/16 clonAZEPAM [Klonopin] 1 mg PO 12/20/16 Medications Given: Amoxicillin (Amoxicillin) 500 mg PO TID RADHA PRN Reason: Protocol Stop: 12/27/16 08:59 Last Admin: 09/20/17 15:46 Dose: 500 mg Cyclosporine (Restasis) 1 drop EACHEYE Q12HRS [facility] Stop: 06/18/17 14:29 Last Admin: 12/21/16 09:20 Dose: 1 drop Fluticasone Propionate (Flonase Nasal [place]) 2 sprays EACHNARE DAILY [facility] Stop: 06/19/17 00:59 Last Admin: 12/21/16 09:20 Dose: 2 puffs Methylphenidate HCl (Ritalin) 40 mg PO BID [facility] Stop: 12/31/16 08:59 Last Admin: 12/21/16 15:40 Dose: 40 mg Pregabalin (Lyrica) 75 mg PO BID [facility] Stop: 06/18/17 14:29 Last Admin: 12/21/16 09:22 Dose: 75 mg Zonisamide (Zonegran) 200 mg PO DAILY [facility] Stop: 06/19/17 00:14 Last Admin: 12/21/16 01:02 Dose: 200 mg Discontinued Medications Acetaminophen (Tylenol) 1,000 mg PO EDNOW ONE Stop: 12/21/16 01:00 Last Admin: 12/21/16 01:02 Dose: 1,000 mg Amoxicillin (Amoxicillin) 500 mg PO EDNOW ONE PRN Reason: Protocol Stop: 12/21/16 00:52 Last Admin: 12/21/16 01:02 Dose: 500 mg Clonazepam (Klonopin) 1 mg PO EDNOW ONE Stop: 12/21/16 06:48 Last Admin: 12/21/16 08:03 Dose: 1 mg Lorazepam (Ativan) 2 mg PO EDNOW ONE Stop: 12/20/16 23:18 Last Admin: 12/20/16 23:28 Dose: 2 mg Lorazepam (Ativan) 1 mg PO EDNOW ONE Stop: 12/21/16 05:32 Last Admin: 12/21/16 05:33 Dose: 1 mg Methylphenidate HCl (Ritalin) 40 mg PO BID [facility] Stop: 12/30/16 14:29 Last Admin: 12/20/16 14:43 Dose: 40 mg Methylphenidate HCl (Ritalin) 40 mg PO ONCE ONE Stop: 12/20/16 18:00 Last Admin: 12/20/16 18:19 Dose: 40 mg Montelukast Sodium (Singulair) 10 mg PO EDNOW ONE Stop: 12/20/16 14:18 Last Admin: 12/20/16 14:43 Dose: 10 mg Olanzapine (Olanzapine) 5 mg PO ONCE ONE Stop: 12/21/16 06:34 Last Admin: 12/21/16 08:03 Dose: 5 mg Laboratory Results: Laboratory Results 12/20/16 12:00 12/20/16 12:00 12/21/16 10:51 Salicylates < 1.0 mg/dL L mg/dL (2.0-20.0) Acetaminophen < 10 mcg/mL L mcg/mL (10-30) Departure - Departure Disposition: Other Psych, Not [facility] Clinical Impression: Bipolar 1 disorder, depressed, Suicidal ideation Otitis media Qualifiers: Otitis media type: suppurative Chronicity: acute Laterality: unspecified laterality Recurrence: not specified as recurrent Spontaneous tympanic membrane rupture: without spontaneous rupture Qualified Code(s): H66.009 - Acute suppurative otitis media without spontaneous rupture of ear drum, unspecified ear Condition: Fair Referrals: Patient,NotPresent [Unknown] - As per Instructions
[2016-12-20 12:11] LABS: % IMMATURE GRANULYOCYTES 0.5 % (0.0-1.1); ABSOLUTE IMMATURE GRANULOCYTES 0.06 10^3/uL (0.00-0.10); ADD DIFF? NO; ADD MORPH? NO; ADD SCAN? NO; ATYPICAL LYMPHOCYTE FLAG 0 (0-99); FRAGMENT RBC FLAG 0 (0-99); HEMATOCRIT 40.6 % (38.0-47.0); LEFT SHIFT FLG 0 (0-99); LIPEMIA HEMOLYSIS FLAG 80 (0-99); MEAN CELL HEMOGLOBIN 27.6 pg (27.9-34.1); MEAN CELL VOLUME 86.2 fL (81.5-99.8); MEAN PLATELET VOLUME 9.6 fL (8.7-11.7); PLATELET CLUMPS FLAG 0 (0-99); PLATELET COUNT 377 10^3/uL (150-400); RED BLOOD CELL COUNT 4.71 10^6/uL (4.18-5.33); RED CELL DISTRIBUTION WIDTH 14.8 % (11.5-15.2)
[2016-12-20 12:33] LABS: ANION GAP 12 mEq/L (8-16); CALCIUM 10.2 mg/dL (8.5-10.4); CARBON DIOXIDE 20 mEq/l (22-31); CHLORIDE 108 mEq/L (97-110); CREATININE 0.7 mg/dL (0.6-1.0); ETHANOL SERUM < 10 mg/dL (0-10); GLOMERULAR FILTRATION RATE > 60; GLUCOSE 94 mg/dL (70-100); POTASSIUM 4.5 mEq/L (3.5-5.2); SODIUM 140 mEq/L (134-144)
[2016-12-20 12:45] LABS: LITHIUM < 0.2 mEq/L (0.6-1.2)
[2016-12-20] MEDS ORDERED: MONTELUKAST SODIUM 10 MG TAB PO ONE (14:17)
[2016-12-20] MEDS: CYCLOSPORINE 0.05% 1 EACH BOX EACHEYE SCH ×2 (14:41→23:45)
[2016-12-20] MEDS: PREGABALIN 75 MG CAP PO SCH ×2 (14:43→23:45)
[2016-12-20] MEDS ORDERED: LORazepam 1 MG TAB PO ONE (23:17)
[2016-12-21 00:30] VITALS: PULSE 78; RESP 18
[2016-12-21] MEDS ORDERED: ACETAMINOPHEN 500 MG TAB PO ONE (00:59)
[2016-12-21] MEDS: ZONISAMIDE 100 MG CAP PO SCH ×2 (01:02→19:03)
[2016-12-21] MEDS: FLUTICASONE NASAL 120 SPRAYS/16 GM MDI EACHNARE SCH ×2 (01:03→09:20)
[2016-12-21] MEDS ORDERED: LORazepam 1 MG TAB PO ONE (05:31)
[2016-12-21] MEDS ORDERED: clonazePAM 1 MG TAB PO ONE (06:47)
[2016-12-21] MEDS: OLANZapine 5 MG TAB PO ONE ×2 (08:03→19:31)
[2016-12-21] MEDS: CYCLOSPORINE 0.05% 1 EACH BOX EACHEYE SCH (09:20)
[2016-12-21] MEDS: PREGABALIN 75 MG CAP PO SCH (09:22)
[2016-12-21 11:01] LABS: SALICYLATE < 1.0 mg/dL (2.0-20.0)
[2016-12-21] MEDS ORDERED: MONTELUKAST SODIUM 10 MG TAB PO ONE (11:54)
[2016-12-21 12:40] VITALS: BP 112/82; TEMP 98.1
[2016-12-21] MEDS ORDERED: OLANZapine 5 MG TAB ONE (19:25)
[2016-12-21] MEDS ORDERED: OLANZapine DISINTEGR 5 MG TAB PO ONE (19:27)
== END 2016-12-21 19:53 ==
LOC: EDUNIT#
DX: R45.851 Suicidal ideations (principal); F31.9 Bipolar disorder, unspecified; H66.009 Acute suppurative otitis media without spontaneous rupture of ear drum, unspecified ear
CPT/HCPCS: 80305; G0480

== ENCOUNTER → 2017-02-26 | Outpatient (CLI) | payer MEDICAID | LOC: FIMAGING 11:52 | PROVIDERS: ATTEND Podiatrist Foot & Ankle Surgery | DX: M76.71 Peroneal tendinitis, right leg (principal) ==

== ENCOUNTER → 2017-03-10 | Outpatient (CLI) | payer MEDICAID | LOC: FIMAGING 08:19 | PROVIDERS: ATTEND Podiatrist Foot & Ankle Surgery | DX: Z12.31 Encounter for screening mammogram for malignant neoplasm of breast (principal) | CPT/HCPCS: G0202 ==

== ENCOUNTER → 2018-05-01 | Outpatient (CLI) | payer MEDICAID, OTHER | LOC: FIMAGING 15:00 | PROVIDERS: ATTEND Specialist | DX: Z12.31 Encounter for screening mammogram for malignant neoplasm of breast (principal) ==